=== PATIENT | male | born 1950 | race African-American/Black ===

== ENCOUNTER 2016-10-05 16:53 | Inpatient (IN) | payer MEDICAID ==
--- NOTE | 2016-10-05 17:22 | DR.GENAD ---
HPI - PCP Primary Care Physician: EDILMA - Complaint/Symptoms Chief Complaint:: DAUGHTER STATES PT. WAS ADMITTED TO [facility] LAST MONDAY AND MONDAY FOR TIA. PT. WAS D/C MONDAY AND RETURNED TO THEIR HOSPITAL ON MONDAY FOR SAME SYMPTOMS & WAS THEN TRANSFERRED TO [facility] WHERE HE STAYED UNTIL MONDAY. PT. HAS BEEN APHASIC SINCE MONDAY AND HAS INCREASED RIGHT SIDED WEAKNESS. DAUGHTER STATES PT. HAS NOT EATING SINCE MONDAY BUT IS ABLE TO TAKE HIS MEDICATIONS. PT. HAS RIGHT SIDED FACIAL DROOPING. - Nurses notes reviewed Nurses Notes Review: Yes - Source History Provided: Family Member - Mode of Arrival Mode of Arrival: Wheelchair - Timing Onset of Chief Complaint: 10/02/16 PMH - PMH Past Medical History: Yes Past Medical History: Hypertension, Liver Disease Past Medical History Comment: TIA Past Surgical History: Yes Surgical History: Ortho Surgery - Family History History of Family Medical Conditions: Yes Family Medical History: Diabetes Mellitus, Cancer, Coronary Artery Disease, Hypertension - Social History Does patient currently use any type of tobacco product: No Have you used tobacco products in the last 12 months: No Type of Tobacco Use: None Does any household member use tobacco: No Alcohol Use: None Do you use any recreational Drugs:: No Lives With: Spouse Lives Where: Home - infectious screening In the last 2 months have you had wt loss of >10#?: NO Have you had fever, night sweats or hemotysis?: No Have you traveled outside the country in the last 6 months?: No Isolation: Standard PE - Vital Signs Vitals: Temperature 98.3 F Pulse Rate [Right Brachial] 65 Pulse Rate 74 Respiratory Rate 16 Blood Pressure [Right Arm] 128/76 Blood Pressure [Left Arm] 146/87 Blood Pressure [Standing] 189/113 Blood Pressure [Sitting] 174/110 Blood Pressure [Lying] 187/116 Blood Pressure 116/79 O2 Sat by Pulse Oximetry 98 ROR - Labs Reviewed Result Diagrams: 10/05/16 17:40 10/05/16 17:40 Laboratory: WBC 8.7 X10^3/uL (3.6-10.0) 10/05/16 17:40 RBC 5.27 X10^6/uL (4.7-6.0) 10/05/16 17:40 Hgb 15.4 g/dL (13.5-18.0) 10/05/16 17:40 Hct 45.4 % (42.0-54.0) 10/05/16 17:40 MCV 86.2 fL (80.0-100.0) 10/05/16 17:40 MCH 29.2 pg (27.0-34.0) 10/05/16 17:40 MCHC 33.9 g/dL (33.0-35.0) 10/05/16 17:40 RDW 14.1 % (11.6-16.5) 10/05/16 17:40 Plt Count 215 X10^3/uL (150.0-450.0) 10/05/16 17:40 MPV 9.3 fL (7.4-11.0) 10/05/16 17:40 Neut % 54.7 % (42.0-75.0) 10/05/16 17:40 Lymph % 32.5 % (21.0-51.0) 10/05/16 17:40 [place] % 10.0 % (0.0-13.0) 10/05/16 17:40 Eos % 2.0 % (0.9-2.9) 10/05/16 17:40 Baso % 0.8 % (0.2-1.0) 10/05/16 17:40 Neut # 4.7 x10^3/uL (2.2-4.8) 10/05/16 17:40 Lymph # 2.8 X10^3/uL (1.3-2.9) 10/05/16 17:40 [place] # 0.9 x10^3/uL (0.3-0.8) H 10/05/16 17:40 Eos # 0.2 x10^3/uL (0.0-0.2) 10/05/16 17:40 Baso # 0.1 X10^3/uL (0.0-0.1) 10/05/16 17:40 Absolute Nucleated RBC 0.0 /100WBC 10/05/16 17:40 Sodium 140 mmol/L (136-145) 10/05/16 17:40 Corrected Sodium TNP 10/05/16 17:40 Potassium 3.8 mmol/L (3.5-5.1) 10/05/16 17:40 Chloride 102 mmol/L (98-107) 10/05/16 17:40 Carbon Dioxide 23.9 mmol/L (21-32) 10/05/16 17:40 BUN 23 mg/dL (7-18) H 10/05/16 17:40 Creatinine 1.41 mg/dL (0.70-1.30) H 10/05/16 17:40 Est GFR (MDRD) Af Amer > 60 (>60) 10/05/16 17:40 Est GFR (MDRD) Non-Af 54 (>60) L 10/05/16 17:40 Glucose 104 mg/dL (65-99) H 10/05/16 17:40 Calcium 9.6 mg/dL (8.5-10.1) 10/05/16 17:40 Corrected Calcium TNP 10/05/16 17:40 Total Bilirubin 1.80 mg/dL (0.2-1.0) H 10/05/16 17:40 AST 53 Units/L (15-37) H 10/05/16 17:40 ALT 43 Units/L (12-78) 10/05/16 17:40 Alkaline Phosphatase 105 Units/L (46-116) 10/05/16 17:40 Creatine Kinase 1685 Units/L (39-308) H 10/05/16 17:40 CK-MB (CK-2) 18.4 ng/mL (0-4.0) H* 10/05/16 17:40 CK/CKMB % Calc 1.1 % (<4) 10/05/16 17:40 Troponin I < 0.02 ng/mL (0-1.5) 10/05/16 17:40 B-Natriuretic Peptide < 5.0 pg/mL (0-79) 10/05/16 17:40 Total Protein 8.6 g/dL (6.4-8.2) H 10/05/16 17:40 Albumin 4.2 g/dL (3.4-5.0) 10/05/16 17:40 Globulin 4.4 g/dL (2.5-4.5) 10/05/16 17:40 Albumin/Globulin Ratio 1.0 Ratio (1.1-2.1) L 10/05/16 17:40 - Discharge Plan Condition: Stable - Follow ups/Referrals Follow ups/Referrals: Lyndon FRANCE [Primary Care Provider] - 3 days - Instructions
[2016-10-05 17:56] LABS: BASOPHILS # (AUTO) 0.1 X10^3/uL (0.0-0.1); BASOPHILS % (AUTO) 0.8 % (0.2-1.0); EOSINOPHILS # (AUTO) 0.2 x10^3/uL (0.0-0.2); HEMATOCRIT 45.4 % (42.0-54.0); HEMOGLOBIN 15.4 g/dL (13.5-18.0); LYMPHOCYTES # (AUTO) 2.8 X10^3/uL (1.3-2.9); LYMPHOCYTES % (AUTO) 32.5 % (21.0-51.0); MEAN CORPUSCULAR HEMOGLOBIN 29.2 pg (27.0-34.0); MEAN CORPUSCULAR HGB CONC 33.9 g/dL (33.0-35.0); MEAN CORPUSCULAR VOLUME 86.2 fL (80.0-100.0); MEAN PLATELET VOLUME 9.3 fL (7.4-11.0); MONOCYTES # (AUTO) 0.9 x10^3/uL (0.3-0.8); NEUTROPHILS # (AUTO) 4.7 x10^3/uL (2.2-4.8); NEUTROPHILS % (AUTO) 54.7 % (42.0-75.0); PLATELET COUNT 215 X10^3/uL (150.0-450.0); RED BLOOD COUNT 5.27 X10^6/uL (4.7-6.0); RED CELL DISTRIBUTION WIDTH 14.1 % (11.6-16.5); WHITE BLOOD COUNT 8.7 X10^3/uL (3.6-10.0)
[2016-10-05 18:06] LABS: BLOOD UREA NITROGEN 23 mg/dL (7-18); CALCIUM 9.6 mg/dL (8.5-10.1); CARBON DIOXIDE 23.9 mmol/L (21-32); CHLORIDE 102 mmol/L (98-107); CREATININE 1.41 mg/dL (0.70-1.30); GLUCOSE 104 mg/dL (65-99); SODIUM 140 mmol/L (136-145); TROPONIN I < 0.02 ng/mL (0-1.5); eGFR BLACK RACES > 60 (>60); eGFR NON BLACK RACES 54 (>60)
[2016-10-05 18:22] LABS: B-TYPE NATRIURETIC PEPTIDE < 5.0 pg/mL (0-79)
[2016-10-05 18:29] LABS: ALANINE AMINOTRANSFERASE 43 Units/L (12-78); ALBUMIN 4.2 g/dL (3.4-5.0); ALKALINE PHOSPHATASE 105 Units/L (46-116); ASPARTATE AMINO TRANSFERASE 53 Units/L (15-37); TOTAL PROTEIN 8.6 g/dL (6.4-8.2)
[2016-10-05 18:31] LABS: CREATINE KINASE MB 18.4 ng/mL (0-4.0)
[2016-10-05 18:32] LABS: CKMB % 1.1 % (<4)
[2016-10-05 18:33] LABS: CREATINE KINASE 1685 Units/L (39-308)
[2016-10-05] MEDS ORDERED: NS 100 ML IV 100 ML IV ONE (18:48)
--- NOTE | 2016-10-05 19:49 | RAD ---
HISTORY: Chest pain Study: Single view chest. Comparison: December 21, 2015. Findings: The trachea is midline. The cardiac silhouette is mildly enlarged with LVH. The lungs are clear wi thout focal infiltrate or effusion. The bony thorax is unremarkable. IMPRESSION: 1. No acute cardiopulmonary disease or changes. Reported By:
--- NOTE | 2016-10-05 20:05 | CT ---
HISTORY: Altered mental status and CVA symptoms. Exams: 1. Noncontrast head CT examination. 2. Post-contrast CT angiogram of the brain. Comparison: None. Technique: Multiple axial images of the brain were obtained from the skull base to the vertex without administr ation of IV contrast. Next, CT angiographic images of the brain were performed following the use of IV contrast with the constructed 3D images of the intracranial vessels. Findings: There is focally altered CT density seen in the left periventricular white matter of the high convex ity which is most concerning for an evolving, acute to subacute, left periventricular white matter i schemic event/CVA which can be confirmed with MR imaging. CT angiographic imaging of the brain demon strates no evidence for high-grade stenosis or occlusion of the intracranial vessels. No large aneur ysm or vascular malformation is appreciated in this patient, either. No acute intracranial hemorrhag e or other acute intracranial process is evident. There is mild cerebral sulcal and cisternal prominence as well as atherosclerotic change in the prox imal intracranial carotid and vertebral arteries, which is not out of proportion to the patient's st ated age. There is mild CT density alteration seen in the periventricular white matter of the high a nd mid-convexity, which is likely in the setting of small vessel disease and not out of proportion t o the patient's stated age. There is no significant ventricular dilatation without evidence for hydr ocephalus or herniation syndrome. No midline shift is evident. No acute intraparenchymal hemorrhage or mass can be identified. No extra-axial fluid collections are seen. No additional alteration in the attenuation of the brain parenchyma can be identified to suggest acute or subacute ischemic sigala ge. The extracranial structures are unremarkable. IMPRESSION: Imaging findings most concerning for an evolving, acute to subacute, left periventricula r/frontal high convexity white matter ischemic event/CVA which can be confirmed with MR imaging. No other acute intracranial process seen. No evidence for acute intracranial bleed, vascular lesion, an eurysm, or occlusion of the [place] vessels. Reported By:
[2016-10-05] MEDS: NS 1000 ML 1,000 ML IV SCH (23:21)
[2016-10-05 23:58] LABS: TROPONIN I < 0.02 ng/mL (0-1.5)
[2016-10-05 23:59] LABS: CKMB % 0.9 % (<4); CREATINE KINASE 1737 Units/L (39-308)
[2016-10-06 00:01] LABS: CREATINE KINASE MB 15.6 ng/mL (0-4.0)
[2016-10-06 00:08] LABS: BILIRUBIN,URINE NEGATIVE (NEGATIVE); BLOOD/HEMOGLOBIN,URINE NEGATIVE (NEGATIVE); GLUCOSE, URINE NEGATIVE (NEGATIVE); KETONES,URINE NEGATIVE (NEGATIVE); LEUKOCYTE ESTERASE ,URINE NEGATIVE (NEGATIVE); NITRITES,URINE NEGATIVE (NEGATIVE); PROTEIN,URINE 2+ (NEGATIVE); UROBILINOGEN,URINE NORMAL (NORMAL)
[2016-10-06 00:11] LABS: APPEARANCE,URINE CLEAR (CLEAR); BACTERIA,URINE TRACE /HPF (NEGATIVE); COLOR,URINE DARK YELLOW (YELLOW); RBC,URINE NONE SEEN /HPF (NEGATIVE); SQUAMOUS EPITHELIAL CELL,UR RARE /HPF (NEGATIVE)
[2016-10-06 00:38] VITALS: BMI 27.6
[2016-10-06 06:13] LABS: BASOPHILS # (AUTO) 0.1 X10^3/uL (0.0-0.1); EOSINOPHILS # (AUTO) 0.4 x10^3/uL (0.0-0.2); EOSINOPHILS % (AUTO) 5.1 % (0.9-2.9); HEMATOCRIT 43.4 % (42.0-54.0); HEMOGLOBIN 14.5 g/dL (13.5-18.0); LYMPHOCYTES % (AUTO) 42.6 % (21.0-51.0); MEAN CORPUSCULAR HGB CONC 33.4 g/dL (33.0-35.0); MEAN CORPUSCULAR VOLUME 86.6 fL (80.0-100.0); MEAN PLATELET VOLUME 9.5 fL (7.4-11.0); MONOCYTES # (AUTO) 0.6 x10^3/uL (0.3-0.8); MONOCYTES % (AUTO) 8.7 % (0.0-13.0); NEUTROPHILS % (AUTO) 42.6 % (42.0-75.0); PLATELET COUNT 189 X10^3/uL (150.0-450.0); RED BLOOD COUNT 5.01 X10^6/uL (4.7-6.0); RED CELL DISTRIBUTION WIDTH 13.9 % (11.6-16.5); WHITE BLOOD COUNT 6.9 X10^3/uL (3.6-10.0)
[2016-10-06 06:16] LABS: ALANINE AMINOTRANSFERASE 43 Units/L (12-78); ALBUMIN 3.8 g/dL (3.4-5.0); ALKALINE PHOSPHATASE 97 Units/L (46-116); ASPARTATE AMINO TRANSFERASE 47 Units/L (15-37); BLOOD UREA NITROGEN 21 mg/dL (7-18); CARBON DIOXIDE 22.8 mmol/L (21-32); CHLORIDE 104 mmol/L (98-107); CHOL/HDL RATIO 5.2 (0.0-5.0); CHOLESTEROL 146 mg/dL (0-200); CREATININE 1.16 mg/dL (0.70-1.30); GLUCOSE 100 mg/dL (65-99); HDL CHOLESTEROL 28 mg/dL (40-60); SODIUM 140 mmol/L (136-145); TOTAL PROTEIN 7.8 g/dL (6.4-8.2); TRIGLYCERIDES 120 mg/dL (0-150); eGFR BLACK RACES > 60 (>60); eGFR NON BLACK RACES > 60 (>60)
[2016-10-06 07:03] LABS: TROPONIN I < 0.02 ng/mL (0-1.5)
[2016-10-06 07:12] LABS: CKMB % 0.9 % (<4); CREATINE KINASE 1314 Units/L (39-308); CREATINE KINASE MB 12.3 ng/mL (0-4.0)
[2016-10-06] MEDS: ASPIRIN PO SCH (08:33)
[2016-10-06] MEDS: NORVASC TAB 2.5 MG PO SCH (08:33)
[2016-10-06] MEDS: PLAVIX PO SCH (08:33)
[2016-10-06] MEDS: NS 1000 ML 1,000 ML IV SCH ×3 (08:34→22:33)
[2016-10-06] MEDS: ZESTRIL TAB 5 MG PO SCH (08:34)
--- NOTE | 2016-10-06 12:37 | MRI ---
MRI abdomen without contrast Indication: Abdominal pain with dysphagia Technique: Multiplanar, multi sequence imaging of the abdomen without IV contrast administration. Findings: The liver the, gallbladder, bile ducts, spleen, pancreas, adrenal glands and kidneys are unremarkabl e aside for bilateral simple renal cysts. Upper GI tract is unremarkable. No free fluid or adenopath y. In out of phase imaging demonstrates no abnormality. Evaluation of the bile ducts on MRCP is nond iagnostic given patient motion throughout the exam. Impression: 1.Bilateral renal cysts. 2. No other abnormality identified within the abdomen. Please note MRCP imaging was nondiagnostic as patient was unable to follow breathing instructions to allow for adequate imaging. Reported By:
--- NOTE | 2016-10-06 13:55 | MRI ---
STUDY: MRA OF THE BRAIN HISTORY: TIA. Headaches, dizziness, right-sided weakness. Comparison: None. Technique: 3D [id number] imaging of the intracranial circulation was performed. Findings: 3D [id number] MRA examination shows normal flow related enhancement in the major intracranial ar teries. There is no evidence of hemodynamically significant stenosis or aneurysm. There is some athe rosclerotic irregularity in the distal basilar artery. There are bilateral posterior communicating a rteries which provides the dominant supply to both posterior cerebral arteries. Very small P1 LANGUAGE INTERPRETER se gments are noted bilaterally. The right vertebral artery is dominant. IMPRESSION: 1. Atherosclerotic irregularity in the basilar artery. Otherwise, unremarkable MRA of the brain, wi anatomic variation as described. Reported By:
--- NOTE | 2016-10-06 16:12 | DR.CONSULT ---
Consult - Consultation for Day of: Date: 10/05/16 - Chief Complaint Chief Complaint: Loss of speech, inability to move right arm. - Allergies Allergies/Adverse Reactions: Allergies Allergy/AdvReac Type Severity Reaction Status Date / Time No Known Drug Allergy Allergy Verified 10/05/16 17:01 - History of Present Illness History of Present Illness: Patient is well known to lower services. He was seen and examined in our neurology clinic recently because of acute onset of stroke resulting in marked slurring of speech progressing to mutism and weakness of the right hand in the right leg. These symptoms occurred almost 7- 8 days ago. Patient was taken to the [place] ER. He was hospitalized that before transferring to [facility] in [place]. He stated there for couple of days. There was improvement in his condition. His speech was dysarthric. Patient had a detailed workup in [facility]. We have asked for medical records from there. But we have not yet received. After release from [facility] couple of days later patient became aphonic. He did have strength in the right arm and right leg. He was able to ambulate when I saw him in my office on 04 Oct 2016 Patient was brought today to the ER because of progression of his stroke. He is unable to move his right arm. He is able to move his right leg. He continues to be mute. His comprehension is intact. He seems to be awake alert and oriented. Patient has intact insight - Past Medical History Past Medical History: Hypertension, Liver Disease - Past Surgical History Surgical History: Ortho Surgery - Family History Family Medical History: Diabetes Mellitus, Cancer, Hypertension - Social History Does patient currently use any type of tobacco product: No Have you used tobacco products in the last 12 months: No Type of Tobacco Use: None Does any household member use tobacco: No Alcohol Use: None Drug Use: None - Medications Home Medications: Amlodipine Besylate [Norvasc] 1 tab PO DAILY 10/05/16 [History Confirmed ] Clopidogrel Bisulfate [PLAVIX TAB 75 MG *] 1 tab PO DAILY 10/05/16 [History Confirmed 10/05/16] Lisinopril [ZESTRIL *] 1 tab PO DAILY 10/05/16 [History Confirmed 10/05/16] - Review of Systems Constitutional: See HPI Eyes: No Symptoms Reported ENT: No Symptoms Reported Respiratory: No Symptoms Reported Cardiovascular: No Symptoms Reported Gastrointestinal: No Symptoms Reported Genitourinary: No Symptoms Reported Musculoskeletal: No Symptoms Reported Skin: No Symptoms Reported Neurological: See HPI - Physical Exam Vital Signs: Temperature 98 F Pulse Rate [Apical] 83 Pulse Rate [Right Brachial] 63 Respiratory Rate 18 Blood Pressure [Right Arm] 151/78 Blood Pressure [Left Arm] 128/77 O2 Sat by Pulse Oximetry 97 Oriented: Normal, Time, Person, Place Eyes: Normal Ear: Normal Nose: Normal Throat: Normal Respiratory: Clear Throughout Cardiovascular: Normal : Normal Auscultation: Bowel Sounds: Normal Palpation: Normal Tenderness: Normal Skin: Normal Musculoskeletal: Normal Psychiatric: Normal, Other (Neurological examination/cognitive status; patient is awake alert oriented in time place and person. Speech; patient is aphemic. Cranial nerve examination; visual braun areconfrontation. Third fourth and sixth cranial nerve; extraocular movements are full without any nystagmus. Pupils are 3.5 mm in size around equal and reactive to light. Fifth cranial nerve; facial sensations are intact bilaterally. Seventh cranial nerve; patient has markedly weakness of lower facial muscles. 8 cranial nerve; hearing is intact bilaterally. Ninth and 10th; gag is positive. 11th cranial nerve; shoulder shrug is weaker on the right side. 12th cranial nerve; tongue is deviated towards the right. Coordination; patient is unable to move the right arm. Coordination could not be tested because of markedly weakness on the right side. Gait; was not tested. Motor system examination; tone is normal. Patient is unable to lift his right arm against the gravity. He is able to lift his right leg slightly against the gravity. On the left side the strength is 5 over 5. DTRs are +1 equal and symmetrical. Plantars are mute. Sensory system examination; patient has no deficits.) Mood Description: Calm Affect: Normal Speech Pattern: Aphasic - Plan Plan: Patient was seen and examined because of the progression of his symptoms. He had a stroke approximately 8-9 days ago then he developed right-sided weakness associated with dysarthria. Patient had a loss of consciousness in the ER in [place]. He was treated in [place] for a day or 2. After that he was transferred to [facility]. He was evaluated and treated there for couple of days. After the discharge from the hospital patient was still able to speak a little bit. But 2 days ago he completely lost his ability to speak. And when I saw in the ER patient is unable to lift his right hand against the gravity. Patient is awake alert and responding very well to verbal communication. His comprehension is intact. Patient has preserved insight.I'm recommending detailed stroke workup. This will include MRI of the brain, MRA of the brain, CT angiogram of the brain. We will follow-up.
--- NOTE | 2016-10-06 17:51 | MRI ---
MRI OF THE BRAIN WITHOUT IV CONTRAST CLINICAL INDICATION: TIA and right-sided weakness TECHNIQUE: Pre-contrast T1-w, T2, and diffusion-w sequences of the brain with ADC maps. COMPARISON: MRI brain 09/27/2016 FINDINGS: Continued expansion noted restricted diffusion involving the high left frontoparietal lobe (series 5 02, image 28). This has increased in size since prior. There is no mass or mass-effect, or abnormal extra-axial fluid collection. Diffuse patchy and confluent periventricular and subcortical T2/FLAIR signal with associated volume loss.. The ventricles are normal in size, shape and position. There ar e normal signal voids in the larger intracranial vessels. The paranasal sinuses and mastoid air cell s are predominantly clear. The marrow signal pattern is within normal limits. IMPRESSION: 1. Expanding acute infarct involving the high left frontal parietal lobes. Reported By:
--- NOTE | 2016-10-06 18:32 | PCM.PROG ---
Progress Note - Progress Note for Day of Date: 10/06/16 - Subjective Subjective: Aphasia, right-sided hemiparalysis.Patient continues to remain unchanged. He is awake alert responding reasonably well to verbal communication although he is unable to speak. He continues to have no strength in the right arm. - Past Medical Family Social History Past Med/Fam/Surg Hx: No changes since H&P Allergies: Allergies No Known Drug Allergy Allergy (Verified 10/05/16 17:01) - Review of Systems ROS: No change since H&P - Vital Signs and I&O's Vital Signs: Temperature 98.4 F Pulse Rate [Apical] 67 Pulse Rate [Right Brachial] 63 Respiratory Rate 18 Blood Pressure [Right Arm] 146/82 Blood Pressure [Left Arm] 128/77 O2 Sat by Pulse Oximetry 98 Intake and Output: Intake & Output 10/04/16 10/05/16 10/06/16 10/07/16 11:59 11:59 11:59 11:59 Intake Total 958 1000 Output Total 350 800 Balance 608 200 - Physical Exam Oriented: Normal, Time, Person, Place Eyes: Normal Ear: Normal Nose: Normal Throat: Normal Cardiovascular: Normal : Normal Auscultation: Bowel Sounds: Normal Tenderness: Normal Skin: Normal Musculoskeletal: Normal Psychiatric: Normal, Other (Neurological examination/cognitive status; patient is awake alert oriented in time place and person. Speech; patient is aphemic. Cranial nerve examination; visual braun areconfrontation. Third fourth and sixth cranial nerve; extraocular movements are full without any nystagmus. Pupils are 3.5 mm in size around equal and reactive to light. Fifth cranial nerve; facial sensations are intact bilaterally. Seventh cranial nerve; patient has markedly weakness of lower facial muscles. 8 cranial nerve; hearing is intact bilaterally. Ninth and 10th; gag is positive. 11th cranial nerve; shoulder shrug is weaker on the right side. 12th cranial nerve; tongue is deviated towards the right. Coordination; patient is unable to move the right arm. Coordination could not be tested because of markedly weakness on the right side. Gait; was not tested. Motor system examination; tone is normal. Patient is unable to lift his right arm against the gravity. He is able to lift his right leg slightly against the gravity. On the left side the strength is 5 over 5. DTRs are +1 equal and symmetrical. Plantars are mute. Sensory system examination; patient has no deficits.) Mood Description: Calm Affect: Normal Speech Pattern: Aphasic - Laboratory and Diagnostics Result Diagrams: 10/06/16 05:35 10/06/16 05:35 Labs: Laboratory WBC 6.9 X10^3/uL (3.6-10.0) 10/06/16 05:35 RBC 5.01 X10^6/uL (4.7-6.0) 10/06/16 05:35 Hgb 14.5 g/dL (13.5-18.0) 10/06/16 05:35 Hct 43.4 % (42.0-54.0) 10/06/16 05:35 MCV 86.6 fL (80.0-100.0) 10/06/16 05:35 MCH 29.0 pg (27.0-34.0) 10/06/16 05:35 MCHC 33.4 g/dL (33.0-35.0) 10/06/16 05:35 RDW 13.9 % (11.6-16.5) 10/06/16 05:35 Plt Count 189 X10^3/uL (150.0-450.0) 10/06/16 05:35 MPV 9.5 fL (7.4-11.0) 10/06/16 05:35 Neut % 42.6 % (42.0-75.0) 10/06/16 05:35 Lymph % 42.6 % (21.0-51.0) 10/06/16 05:35 [place] % 8.7 % (0.0-13.0) 10/06/16 05:35 Eos % 5.1 % (0.9-2.9) H 10/06/16 05:35 Baso % 1.0 % (0.2-1.0) 10/06/16 05:35 Neut # 3.0 x10^3/uL (2.2-4.8) 10/06/16 05:35 Lymph # 3.0 X10^3/uL (1.3-2.9) H 10/06/16 05:35 [place] # 0.6 x10^3/uL (0.3-0.8) 10/06/16 05:35 Eos # 0.4 x10^3/uL (0.0-0.2) H 10/06/16 05:35 Baso # 0.1 X10^3/uL (0.0-0.1) 10/06/16 05:35 Absolute Nucleated RBC 0.1 /100WBC 10/06/16 05:35 INR Target Range - 10/06/16 05:35 INR 1.22 (0.8-1.3) 10/06/16 05:35 PTT 29.9 SECONDS (22.9-36.5) 10/06/16 05:35 PTT Comment - 10/06/16 05:35 Sodium 140 mmol/L (136-145) 10/06/16 05:35 Corrected Sodium TNP 10/06/16 05:35 Potassium 3.7 mmol/L (3.5-5.1) 10/06/16 05:35 Chloride 104 mmol/L (98-107) 10/06/16 05:35 Carbon Dioxide 22.8 mmol/L (21-32) 10/06/16 05:35 BUN 21 mg/dL (7-18) H 10/06/16 05:35 Creatinine 1.16 mg/dL (0.70-1.30) 10/06/16 05:35 Est GFR (MDRD) Af Amer > 60 (>60) 10/06/16 05:35 Est GFR (MDRD) Non-Af > 60 (>60) 10/06/16 05:35 Glucose 100 mg/dL (65-99) H 10/06/16 05:35 Calcium 9.0 mg/dL (8.5-10.1) 10/06/16 05:35 Corrected Calcium TNP 10/06/16 05:35 Total Bilirubin 1.90 mg/dL (0.2-1.0) H 10/06/16 05:35 AST 47 Units/L (15-37) H 10/06/16 05:35 ALT 43 Units/L (12-78) 10/06/16 05:35 Alkaline Phosphatase 97 Units/L (46-116) 10/06/16 05:35 Creatine Kinase 1314 Units/L (39-308) H 10/06/16 05:35 CK-MB (CK-2) 12.3 ng/mL (0-4.0) H* 10/06/16 05:35 CK/CKMB % Calc 0.9 % (<4) 10/06/16 05:35 Troponin I < 0.02 ng/mL (0-1.5) 10/06/16 05:35 B-Natriuretic Peptide < 5.0 pg/mL (0-79) 10/05/16 17:40 Total Protein 7.8 g/dL (6.4-8.2) 10/06/16 05:35 Albumin 3.8 g/dL (3.4-5.0) 10/06/16 05:35 Globulin 4.0 g/dL (2.5-4.5) 10/06/16 05:35 Albumin/Globulin Ratio 1.0 Ratio (1.1-2.1) L 10/06/16 05:35 Triglycerides 120 mg/dL (0-150) 10/06/16 05:35 Cholesterol 146 mg/dL (0-200) 10/06/16 05:35 LDL Cholesterol, Calc 94 mg/dL (0-100) 10/06/16 05:35 HDL Cholesterol 28 mg/dL (40-60) L 10/06/16 05:35 Cholesterol/HDL Ratio 5.2 (0.0-5.0) H 10/06/16 05:35 Specimen Type Clean catch urine 10/05/16 23:50 Urine Color Dark yellow (YELLOW) 10/05/16 23:50 Urine Appearance Clear (CLEAR) 10/05/16 23:50 Urine pH 5.0 (5.0 - 8.0) 10/05/16 23:50 Ur Specific [place] 1.015 (1.000-1.030) 10/05/16 23:50 Urine Protein 2+ (NEGATIVE) 10/05/16 23:50 Urine Glucose (UA) Negative (NEGATIVE) 10/05/16 23:50 Urine Ketones Negative (NEGATIVE) 10/05/16 23:50 Urine Occult Blood Negative (NEGATIVE) 10/05/16 23:50 Urine Nitrite Negative (NEGATIVE) 10/05/16 23:50 Urine Bilirubin Negative (NEGATIVE) 10/05/16 23:50 Urine Urobilinogen Normal (NORMAL) 10/05/16 23:50 Ur Leukocyte Esterase Negative (NEGATIVE) 10/05/16 23:50 Urine RBC None seen /HPF (NEGATIVE) 10/05/16 23:50 Urine WBC 0-1 /HPF (NEGATIVE) 10/05/16 23:50 Ur Squamous Epith Cells Rare /HPF (NEGATIVE) 10/05/16 23:50 Urine Bacteria Trace /HPF (NEGATIVE) 10/05/16 23:50 Ur Culture Indicated? No/not indicated 10/05/16 23:50 Additional Notes Additional Notes: Patient's condition remains unchanged. There is no improvement in his condition. He had MRI of the brain which showed multiple strokes in the distributional posterior cerebral artery and middle cerebral artery on the left side. It is possible that patient is showering emboli. His detailed stroke workup is in progress. At this point I am recommending continuation of his present management. We will follow up.
[2016-10-06] MEDS: COLACE CAP 100 MG PO SCH (22:33)
[2016-10-06] MEDS: MILK OF MAGNESIA PO SCH (22:33)
[2016-10-07] MEDS ORDERED: NORVASC TAB 2.5 MG ONE (08:49)
[2016-10-07] MEDS: ZESTRIL TAB 5 MG PO SCH (09:00)
[2016-10-07] MEDS: ASPIRIN PO SCH (09:00)
[2016-10-07] MEDS: NORVASC TAB 2.5 MG PO SCH (09:00)
[2016-10-07] MEDS: PLAVIX PO SCH (09:03)
[2016-10-07] MEDS: NS 1000 ML 1,000 ML IV SCH (15:00)
--- NOTE | 2016-10-07 20:08 | PCM.PROG ---
Progress Note - Progress Note for Day of Date: 10/07/16 - Subjective Subjective: Patient was able to stand today and take a few steps with the help of walker. He is feeling better. He made some efforts to say something but it was unintelligible. He was seen by physical therapy and speech therapy. - Past Medical Family Social History Past Med/Fam/Surg Hx: No changes since H&P Allergies: Allergies No Known Drug Allergy Allergy (Verified 10/05/16 17:01) - Review of Systems ROS: No change since H&P - Vital Signs and I&O's Vital Signs: Temperature 98 F Pulse Rate [Apical] 68 Pulse Rate [Right Brachial] 63 Respiratory Rate 19 Blood Pressure [Right Arm] 133/96 Blood Pressure [Left Arm] 128/77 O2 Sat by Pulse Oximetry 97 Intake and Output: Intake & Output 10/05/16 10/06/16 10/07/16 10/08/16 11:59 11:59 11:59 11:59 Intake Total 958 1340 0 Output Total 350 1075 250 Balance 608 265 -250 - Physical Exam Oriented: Normal, Time, Person, Place Eyes: Normal Ear: Normal Nose: Normal Throat: Normal Cardiovascular: Normal : Normal Auscultation: Bowel Sounds: Normal Tenderness: Normal Skin: Normal Musculoskeletal: Normal Psychiatric: Normal, Other (Neurological examination/cognitive status; patient is awake alert oriented in time place and person. Speech; patient is aphemic. Cranial nerve examination; visual braun areconfrontation. Third fourth and sixth cranial nerve; extraocular movements are full without any nystagmus. Pupils are 3.5 mm in size around equal and reactive to light. Fifth cranial nerve; facial sensations are intact bilaterally. Seventh cranial nerve; patient has markedly weakness of lower facial muscles. 8 cranial nerve; hearing is intact bilaterally. Ninth and 10th; gag is positive. 11th cranial nerve; shoulder shrug is weaker on the right side. 12th cranial nerve; tongue is deviated towards the right. Coordination; patient is unable to move the right arm. Coordination could not be tested because of markedly weakness on the right side. Gait; was not tested. Motor system examination; tone is normal. Patient is unable to lift his right arm against the gravity. He is able to lift his right leg slightly against the gravity. On the left side the strength is 5 over 5. DTRs are +1 equal and symmetrical. Plantars are mute. Sensory system examination; patient has no deficits.) Mood Description: Calm Affect: Normal Speech Pattern: Aphasic - Laboratory and Diagnostics Result Diagrams: 10/06/16 05:35 10/06/16 05:35 Labs: Laboratory WBC 6.9 X10^3/uL (3.6-10.0) 10/06/16 05:35 RBC 5.01 X10^6/uL (4.7-6.0) 10/06/16 05:35 Hgb 14.5 g/dL (13.5-18.0) 10/06/16 05:35 Hct 43.4 % (42.0-54.0) 10/06/16 05:35 MCV 86.6 fL (80.0-100.0) 10/06/16 05:35 MCH 29.0 pg (27.0-34.0) 10/06/16 05:35 MCHC 33.4 g/dL (33.0-35.0) 10/06/16 05:35 RDW 13.9 % (11.6-16.5) 10/06/16 05:35 Plt Count 189 X10^3/uL (150.0-450.0) 10/06/16 05:35 MPV 9.5 fL (7.4-11.0) 10/06/16 05:35 Neut % 42.6 % (42.0-75.0) 10/06/16 05:35 Lymph % 42.6 % (21.0-51.0) 10/06/16 05:35 [place] % 8.7 % (0.0-13.0) 10/06/16 05:35 Eos % 5.1 % (0.9-2.9) H 10/06/16 05:35 Baso % 1.0 % (0.2-1.0) 10/06/16 05:35 Neut # 3.0 x10^3/uL (2.2-4.8) 10/06/16 05:35 Lymph # 3.0 X10^3/uL (1.3-2.9) H 10/06/16 05:35 [place] # 0.6 x10^3/uL (0.3-0.8) 10/06/16 05:35 Eos # 0.4 x10^3/uL (0.0-0.2) H 10/06/16 05:35 Baso # 0.1 X10^3/uL (0.0-0.1) 10/06/16 05:35 Absolute Nucleated RBC 0.1 /100WBC 10/06/16 05:35 INR Target Range - 10/06/16 05:35 INR 1.22 (0.8-1.3) 10/06/16 05:35 PTT 29.9 SECONDS (22.9-36.5) 10/06/16 05:35 PTT Comment - 10/06/16 05:35 Sodium 140 mmol/L (136-145) 10/06/16 05:35 Corrected Sodium TNP 10/06/16 05:35 Potassium 3.7 mmol/L (3.5-5.1) 10/06/16 05:35 Chloride 104 mmol/L (98-107) 10/06/16 05:35 Carbon Dioxide 22.8 mmol/L (21-32) 10/06/16 05:35 BUN 21 mg/dL (7-18) H 10/06/16 05:35 Creatinine 1.16 mg/dL (0.70-1.30) 10/06/16 05:35 Est GFR (MDRD) Af Amer > 60 (>60) 10/06/16 05:35 Est GFR (MDRD) Non-Af > 60 (>60) 10/06/16 05:35 Glucose 100 mg/dL (65-99) H 10/06/16 05:35 Calcium 9.0 mg/dL (8.5-10.1) 10/06/16 05:35 Corrected Calcium TNP 10/06/16 05:35 Total Bilirubin 1.90 mg/dL (0.2-1.0) H 10/06/16 05:35 AST 47 Units/L (15-37) H 10/06/16 05:35 ALT 43 Units/L (12-78) 10/06/16 05:35 Alkaline Phosphatase 97 Units/L (46-116) 10/06/16 05:35 Creatine Kinase 1314 Units/L (39-308) H 10/06/16 05:35 CK-MB (CK-2) 12.3 ng/mL (0-4.0) H* 10/06/16 05:35 CK/CKMB % Calc 0.9 % (<4) 10/06/16 05:35 Troponin I < 0.02 ng/mL (0-1.5) 10/06/16 05:35 B-Natriuretic Peptide < 5.0 pg/mL (0-79) 10/05/16 17:40 Total Protein 7.8 g/dL (6.4-8.2) 10/06/16 05:35 Albumin 3.8 g/dL (3.4-5.0) 10/06/16 05:35 Globulin 4.0 g/dL (2.5-4.5) 10/06/16 05:35 Albumin/Globulin Ratio 1.0 Ratio (1.1-2.1) L 10/06/16 05:35 Triglycerides 120 mg/dL (0-150) 10/06/16 05:35 Cholesterol 146 mg/dL (0-200) 10/06/16 05:35 LDL Cholesterol, Calc 94 mg/dL (0-100) 10/06/16 05:35 HDL Cholesterol 28 mg/dL (40-60) L 10/06/16 05:35 Cholesterol/HDL Ratio 5.2 (0.0-5.0) H 10/06/16 05:35 Specimen Type Clean catch urine 10/05/16 23:50 Urine Color Dark yellow (YELLOW) 10/05/16 23:50 Urine Appearance Clear (CLEAR) 10/05/16 23:50 Urine pH 5.0 (5.0 - 8.0) 10/05/16 23:50 Ur Specific [place] 1.015 (1.000-1.030) 10/05/16 23:50 Urine Protein 2+ (NEGATIVE) 10/05/16 23:50 Urine Glucose (UA) Negative (NEGATIVE) 10/05/16 23:50 Urine Ketones Negative (NEGATIVE) 10/05/16 23:50 Urine Occult Blood Negative (NEGATIVE) 10/05/16 23:50 Urine Nitrite Negative (NEGATIVE) 10/05/16 23:50 Urine Bilirubin Negative (NEGATIVE) 10/05/16 23:50 Urine Urobilinogen Normal (NORMAL) 10/05/16 23:50 Ur Leukocyte Esterase Negative (NEGATIVE) 10/05/16 23:50 Urine RBC None seen /HPF (NEGATIVE) 10/05/16 23:50 Urine WBC 0-1 /HPF (NEGATIVE) 10/05/16 23:50 Ur Squamous Epith Cells Rare /HPF (NEGATIVE) 10/05/16 23:50 Urine Bacteria Trace /HPF (NEGATIVE) 10/05/16 23:50 Ur Culture Indicated? No/not indicated 10/05/16 23:50 - Plan (1) CVA (cerebral vascular accident) Status: Acute Qualifiers: CVA mechanism: C Precerebral and cerebral artery: P Laterality of affected vessel: L Plan: There is some degree of improvement in patient's condition. I'm recommending continuation of his present management. We will follow-up.
[2016-10-07] MEDS: MILK OF MAGNESIA PO SCH (22:44)
[2016-10-07] MEDS: COLACE CAP 100 MG PO SCH (22:44)
[2016-10-08] MEDS: NS 1000 ML 1,000 ML IV SCH ×2 (02:42→15:25)
[2016-10-08] MEDS ORDERED: NORVASC TAB 2.5 MG ONE (09:00)
[2016-10-08] MEDS: ASPIRIN PO SCH (09:06)
[2016-10-08] MEDS: PLAVIX PO SCH (09:06)
[2016-10-08] MEDS: NORVASC TAB 2.5 MG PO SCH (09:06)
[2016-10-08] MEDS: ZESTRIL TAB 5 MG PO SCH (09:06)
--- NOTE | 2016-10-08 16:41 | PCM.PROG ---
Progress Note - Subjective Subjective: Patient is awake alert today. He is not in any distress. He is responding reasonably well to verbal communication via sign language. His speech is intelligible to family members and the nursing staff. He was able to name simple objects. But his speech is severely dysarthric but the daughter can make sense out of it.he was again able to stand and walk with the help of walker according to the family. Patient has some degree of weakness in the right leg according to the family. - Past Medical Family Social History Past Med/Fam/Surg Hx: No changes since H&P Allergies: Allergies No Known Drug Allergy Allergy (Verified 10/05/16 17:01) - Review of Systems ROS: No change since H&P - Vital Signs and I&O's Vital Signs: Temperature 97.8 F Pulse Rate [Apical] 53 Pulse Rate [Right Brachial] 63 Respiratory Rate 18 Blood Pressure [Right Arm] 131/80 Blood Pressure [Left Arm] 129/78 O2 Sat by Pulse Oximetry 96 Intake and Output: Intake & Output 10/06/16 10/07/16 10/08/16 10/09/16 11:59 11:59 11:59 11:59 Intake Total 958 1340 720 315 Output Total 350 1075 350 250 Balance 608 265 370 65 - Physical Exam Oriented: Normal, Time, Person, Place Eyes: Normal Ear: Normal Nose: Normal Throat: Normal Cardiovascular: Normal : Normal Auscultation: Bowel Sounds: Normal Tenderness: Normal Skin: Normal Musculoskeletal: Normal Psychiatric: Normal, Other (Neurological examination/cognitive status; patient is awake alert oriented in time place and person. Speech; patient is aphemic. Cranial nerve examination; visual braun areconfrontation. Third fourth and sixth cranial nerve; extraocular movements are full without any nystagmus. Pupils are 3.5 mm in size around equal and reactive to light. Fifth cranial nerve; facial sensations are intact bilaterally. Seventh cranial nerve; patient has markedly weakness of lower facial muscles. 8 cranial nerve; hearing is intact bilaterally. Ninth and 10th; gag is positive. 11th cranial nerve; shoulder shrug is weaker on the right side. 12th cranial nerve; tongue is deviated towards the right. Coordination; patient is unable to move the right arm. Coordination could not be tested because of markedly weakness on the right side. Gait; was not tested. Motor system examination; tone is normal. Patient is unable to lift his right arm against the gravity. He is able to lift his right leg slightly against the gravity. On the left side the strength is 5 over 5. DTRs are +1 equal and symmetrical. Plantars are mute. Sensory system examination; patient has no deficits.) Mood Description: Calm Affect: Normal Speech Pattern: Unclear, Aphasic - Laboratory and Diagnostics Result Diagrams: 10/06/16 05:35 10/06/16 05:35 Labs: Laboratory WBC 6.9 X10^3/uL (3.6-10.0) 10/06/16 05:35 RBC 5.01 X10^6/uL (4.7-6.0) 10/06/16 05:35 Hgb 14.5 g/dL (13.5-18.0) 10/06/16 05:35 Hct 43.4 % (42.0-54.0) 10/06/16 05:35 MCV 86.6 fL (80.0-100.0) 10/06/16 05:35 MCH 29.0 pg (27.0-34.0) 10/06/16 05:35 MCHC 33.4 g/dL (33.0-35.0) 10/06/16 05:35 RDW 13.9 % (11.6-16.5) 10/06/16 05:35 Plt Count 189 X10^3/uL (150.0-450.0) 10/06/16 05:35 MPV 9.5 fL (7.4-11.0) 10/06/16 05:35 Neut % 42.6 % (42.0-75.0) 10/06/16 05:35 Lymph % 42.6 % (21.0-51.0) 10/06/16 05:35 [place] % 8.7 % (0.0-13.0) 10/06/16 05:35 Eos % 5.1 % (0.9-2.9) H 10/06/16 05:35 Baso % 1.0 % (0.2-1.0) 10/06/16 05:35 Neut # 3.0 x10^3/uL (2.2-4.8) 10/06/16 05:35 Lymph # 3.0 X10^3/uL (1.3-2.9) H 10/06/16 05:35 [place] # 0.6 x10^3/uL (0.3-0.8) 10/06/16 05:35 Eos # 0.4 x10^3/uL (0.0-0.2) H 10/06/16 05:35 Baso # 0.1 X10^3/uL (0.0-0.1) 10/06/16 05:35 Absolute Nucleated RBC 0.1 /100WBC 10/06/16 05:35 INR Target Range - 10/06/16 05:35 INR 1.22 (0.8-1.3) 10/06/16 05:35 PTT 29.9 SECONDS (22.9-36.5) 10/06/16 05:35 PTT Comment - 10/06/16 05:35 Sodium 140 mmol/L (136-145) 10/06/16 05:35 Corrected Sodium TNP 10/06/16 05:35 Potassium 3.7 mmol/L (3.5-5.1) 10/06/16 05:35 Chloride 104 mmol/L (98-107) 10/06/16 05:35 Carbon Dioxide 22.8 mmol/L (21-32) 10/06/16 05:35 BUN 21 mg/dL (7-18) H 10/06/16 05:35 Creatinine 1.16 mg/dL (0.70-1.30) 10/06/16 05:35 Est GFR (MDRD) Af Amer > 60 (>60) 10/06/16 05:35 Est GFR (MDRD) Non-Af > 60 (>60) 10/06/16 05:35 Glucose 100 mg/dL (65-99) H 10/06/16 05:35 Calcium 9.0 mg/dL (8.5-10.1) 10/06/16 05:35 Corrected Calcium TNP 10/06/16 05:35 Total Bilirubin 1.90 mg/dL (0.2-1.0) H 10/06/16 05:35 AST 47 Units/L (15-37) H 10/06/16 05:35 ALT 43 Units/L (12-78) 10/06/16 05:35 Alkaline Phosphatase 97 Units/L (46-116) 10/06/16 05:35 Creatine Kinase 1314 Units/L (39-308) H 10/06/16 05:35 CK-MB (CK-2) 12.3 ng/mL (0-4.0) H* 10/06/16 05:35 CK/CKMB % Calc 0.9 % (<4) 10/06/16 05:35 Troponin I < 0.02 ng/mL (0-1.5) 10/06/16 05:35 B-Natriuretic Peptide < 5.0 pg/mL (0-79) 10/05/16 17:40 Total Protein 7.8 g/dL (6.4-8.2) 10/06/16 05:35 Albumin 3.8 g/dL (3.4-5.0) 10/06/16 05:35 Globulin 4.0 g/dL (2.5-4.5) 10/06/16 05:35 Albumin/Globulin Ratio 1.0 Ratio (1.1-2.1) L 10/06/16 05:35 Triglycerides 120 mg/dL (0-150) 10/06/16 05:35 Cholesterol 146 mg/dL (0-200) 10/06/16 05:35 LDL Cholesterol, Calc 94 mg/dL (0-100) 10/06/16 05:35 HDL Cholesterol 28 mg/dL (40-60) L 10/06/16 05:35 Cholesterol/HDL Ratio 5.2 (0.0-5.0) H 10/06/16 05:35 Specimen Type Clean catch urine 10/05/16 23:50 Urine Color Dark yellow (YELLOW) 10/05/16 23:50 Urine Appearance Clear (CLEAR) 10/05/16 23:50 Urine pH 5.0 (5.0 - 8.0) 10/05/16 23:50 Ur Specific [place] 1.015 (1.000-1.030) 10/05/16 23:50 Urine Protein 2+ (NEGATIVE) 10/05/16 23:50 Urine Glucose (UA) Negative (NEGATIVE) 10/05/16 23:50 Urine Ketones Negative (NEGATIVE) 10/05/16 23:50 Urine Occult Blood Negative (NEGATIVE) 10/05/16 23:50 Urine Nitrite Negative (NEGATIVE) 10/05/16 23:50 Urine Bilirubin Negative (NEGATIVE) 10/05/16 23:50 Urine Urobilinogen Normal (NORMAL) 10/05/16 23:50 Ur Leukocyte Esterase Negative (NEGATIVE) 10/05/16 23:50 Urine RBC None seen /HPF (NEGATIVE) 10/05/16 23:50 Urine WBC 0-1 /HPF (NEGATIVE) 10/05/16 23:50 Ur Squamous Epith Cells Rare /HPF (NEGATIVE) 10/05/16 23:50 Urine Bacteria Trace /HPF (NEGATIVE) 10/05/16 23:50 Ur Culture Indicated? No/not indicated 10/05/16 23:50 - Plan (1) CVA (cerebral vascular accident) Status: Acute Qualifiers: CVA mechanism: C Precerebral and cerebral artery: P Laterality of affected vessel: L Plan: Patient is able to speak some words and name them. The family is able to understand him. He has complaints of weakness in the right leg. According to the family it is weaker than yesterday. His neurological examination is essentially remains unchanged. If his condition deteriorates we will go the neuroimaging studies. In the meantime I will continue his present management. We will follow him up.
[2016-10-08] MEDS: COLACE CAP 100 MG PO SCH (21:29)
[2016-10-09 05:42] LABS: BASOPHILS # (AUTO) 0.1 X10^3/uL (0.0-0.1); BASOPHILS % (AUTO) 0.8 % (0.2-1.0); EOSINOPHILS # (AUTO) 0.5 x10^3/uL (0.0-0.2); HEMATOCRIT 41.6 % (42.0-54.0); HEMOGLOBIN 14.2 g/dL (13.5-18.0); LYMPHOCYTES # (AUTO) 2.2 X10^3/uL (1.3-2.9); LYMPHOCYTES % (AUTO) 34.3 % (21.0-51.0); MEAN CORPUSCULAR HEMOGLOBIN 29.3 pg (27.0-34.0); MEAN CORPUSCULAR HGB CONC 34.2 g/dL (33.0-35.0); MEAN CORPUSCULAR VOLUME 85.6 fL (80.0-100.0); MEAN PLATELET VOLUME 9.3 fL (7.4-11.0); MONOCYTES # (AUTO) 0.4 x10^3/uL (0.3-0.8); MONOCYTES % (AUTO) 6.5 % (0.0-13.0); NEUTROPHILS # (AUTO) 3.3 x10^3/uL (2.2-4.8); NEUTROPHILS % (AUTO) 51.4 % (42.0-75.0); PLATELET COUNT 188 X10^3/uL (150.0-450.0); RED BLOOD COUNT 4.86 X10^6/uL (4.7-6.0); RED CELL DISTRIBUTION WIDTH 13.7 % (11.6-16.5); WHITE BLOOD COUNT 6.5 X10^3/uL (3.6-10.0)
[2016-10-09 05:46] LABS: ALANINE AMINOTRANSFERASE 32 Units/L (12-78); ALBUMIN 3.5 g/dL (3.4-5.0); ALKALINE PHOSPHATASE 105 Units/L (46-116); ASPARTATE AMINO TRANSFERASE 22 Units/L (15-37); BLOOD UREA NITROGEN 14 mg/dL (7-18); CARBON DIOXIDE 27.4 mmol/L (21-32); CHLORIDE 103 mmol/L (98-107); CREATININE 1.03 mg/dL (0.70-1.30); GLUCOSE 101 mg/dL (65-99); SODIUM 137 mmol/L (136-145); TOTAL PROTEIN 7.5 g/dL (6.4-8.2); eGFR BLACK RACES > 60 (>60); eGFR NON BLACK RACES > 60 (>60)
[2016-10-09] MEDS: NS 1000 ML 1,000 ML IV SCH ×2 (07:02→07:03)
[2016-10-09] MEDS: MILK OF MAGNESIA PO SCH ×2 (07:02→21:44)
[2016-10-09] MEDS ORDERED: NORVASC TAB 2.5 MG ONE (09:18)
[2016-10-09] MEDS: ASPIRIN PO SCH (10:45)
[2016-10-09] MEDS: ZESTRIL TAB 5 MG PO SCH (10:45)
[2016-10-09] MEDS: NORVASC TAB 2.5 MG PO SCH (10:45)
[2016-10-09] MEDS: PLAVIX PO SCH (10:46)
--- NOTE | 2016-10-09 18:59 | PCM.PROG ---
Progress Note - Progress Note for Day of Date: 10/09/16 - Subjective Subjective: Patient was seen and examined. He is awake alert without any physical distress. He is responding very well to verbal communication via sign language. However he can name the objects. He can generate appropriate responses which are very brief and dysarthric however these are understandable by the staff and family members. He is not voicing any complaints. His strength in the right leg has improved. But he continues to be paralytic with his right arm. He is unable to lift right arm against gravity. He was able to walk with the help of walker today. - Past Medical Family Social History Past Med/Fam/Surg Hx: No changes since H&P Allergies: Allergies No Known Drug Allergy Allergy (Verified 10/05/16 17:01) - Review of Systems ROS: No change since H&P ROS changes noted: no changes in the review of systems. - Vital Signs and I&O's Vital Signs: Temperature 98 F Pulse Rate [Apical] 60 Pulse Rate [Right Brachial] 63 Respiratory Rate 18 Blood Pressure [Right Arm] 131/80 Blood Pressure [Left Arm] 138/76 O2 Sat by Pulse Oximetry 96 Intake and Output: Intake & Output 10/07/16 10/08/16 10/09/16 10/10/16 11:59 11:59 11:59 11:59 Intake Total 1340 720 765 460 Output Total 1075 350 775 300 Balance 265 370 -10 160 - Physical Exam Oriented: Normal, Time, Person, Place Eyes: Normal Ear: Normal Nose: Normal Throat: Normal Cardiovascular: Normal : Normal Auscultation: Bowel Sounds: Normal Tenderness: Normal Skin: Normal Musculoskeletal: Normal Psychiatric: Normal, Other (Neurological examination/cognitive status; patient is awake alert oriented in time place and person. Speech; patient is aphemic. Cranial nerve examination; visual braun areconfrontation. Third fourth and sixth cranial nerve; extraocular movements are full without any nystagmus. Pupils are 3.5 mm in size around equal and reactive to light. Fifth cranial nerve; facial sensations are intact bilaterally. Seventh cranial nerve; patient has markedly weakness of lower facial muscles. 8 cranial nerve; hearing is intact bilaterally. Ninth and 10th; gag is positive. 11th cranial nerve; shoulder shrug is weaker on the right side. 12th cranial nerve; tongue is deviated towards the right. Coordination; patient is unable to move the right arm. Coordination could not be tested because of markedly weakness on the right side. Gait; was not tested. Motor system examination; tone is normal. Patient is unable to lift his right arm against the gravity. He is able to lift his right leg slightly against the gravity. On the left side the strength is 5 over 5. DTRs are +1 equal and symmetrical. Plantars are mute. Sensory system examination; patient has no deficits.) Mood Description: Calm Affect: Normal Speech Pattern: Aphasic - Laboratory and Diagnostics Result Diagrams: 10/09/16 05:09 10/09/16 05:09 Labs: Laboratory WBC 6.5 X10^3/uL (3.6-10.0) 10/09/16 05:09 RBC 4.86 X10^6/uL (4.7-6.0) 10/09/16 05:09 Hgb 14.2 g/dL (13.5-18.0) 10/09/16 05:09 Hct 41.6 % (42.0-54.0) L 10/09/16 05:09 MCV 85.6 fL (80.0-100.0) 10/09/16 05:09 MCH 29.3 pg (27.0-34.0) 10/09/16 05:09 MCHC 34.2 g/dL (33.0-35.0) 10/09/16 05:09 RDW 13.7 % (11.6-16.5) 10/09/16 05:09 Plt Count 188 X10^3/uL (150.0-450.0) 10/09/16 05:09 MPV 9.3 fL (7.4-11.0) 10/09/16 05:09 Neut % 51.4 % (42.0-75.0) 10/09/16 05:09 Lymph % 34.3 % (21.0-51.0) 10/09/16 05:09 [place] % 6.5 % (0.0-13.0) 10/09/16 05:09 Eos % 7.0 % (0.9-2.9) H 10/09/16 05:09 Baso % 0.8 % (0.2-1.0) 10/09/16 05:09 Neut # 3.3 x10^3/uL (2.2-4.8) 10/09/16 05:09 Lymph # 2.2 X10^3/uL (1.3-2.9) 10/09/16 05:09 [place] # 0.4 x10^3/uL (0.3-0.8) 10/09/16 05:09 Eos # 0.5 x10^3/uL (0.0-0.2) H 10/09/16 05:09 Baso # 0.1 X10^3/uL (0.0-0.1) 10/09/16 05:09 Absolute Nucleated RBC 0.1 /100WBC 10/09/16 05:09 INR Target Range - 10/06/16 05:35 INR 1.22 (0.8-1.3) 10/06/16 05:35 PTT 29.9 SECONDS (22.9-36.5) 10/06/16 05:35 PTT Comment - 10/06/16 05:35 Sodium 137 mmol/L (136-145) 10/09/16 05:09 Corrected Sodium TNP 10/09/16 05:09 Potassium 3.8 mmol/L (3.5-5.1) 10/09/16 05:09 Chloride 103 mmol/L (98-107) 10/09/16 05:09 Carbon Dioxide 27.4 mmol/L (21-32) 10/09/16 05:09 BUN 14 mg/dL (7-18) 10/09/16 05:09 Creatinine 1.03 mg/dL (0.70-1.30) 10/09/16 05:09 Est GFR (MDRD) Af Amer > 60 (>60) 10/09/16 05:09 Est GFR (MDRD) Non-Af > 60 (>60) 10/09/16 05:09 Glucose 101 mg/dL (65-99) H 10/09/16 05:09 Calcium 9.0 mg/dL (8.5-10.1) 10/09/16 05:09 Corrected Calcium TNP 10/09/16 05:09 Total Bilirubin 1.40 mg/dL (0.2-1.0) H 10/09/16 05:09 AST 22 Units/L (15-37) 10/09/16 05:09 ALT 32 Units/L (12-78) 10/09/16 05:09 Alkaline Phosphatase 105 Units/L (46-116) 10/09/16 05:09 Creatine Kinase 1314 Units/L (39-308) H 10/06/16 05:35 CK-MB (CK-2) 12.3 ng/mL (0-4.0) H* 10/06/16 05:35 CK/CKMB % Calc 0.9 % (<4) 10/06/16 05:35 Troponin I < 0.02 ng/mL (0-1.5) 10/06/16 05:35 B-Natriuretic Peptide < 5.0 pg/mL (0-79) 10/05/16 17:40 Total Protein 7.5 g/dL (6.4-8.2) 10/09/16 05:09 Albumin 3.5 g/dL (3.4-5.0) 10/09/16 05:09 Globulin 4.0 g/dL (2.5-4.5) 10/09/16 05:09 Albumin/Globulin Ratio 0.9 Ratio (1.1-2.1) L 10/09/16 05:09 Triglycerides 120 mg/dL (0-150) 10/06/16 05:35 Cholesterol 146 mg/dL (0-200) 10/06/16 05:35 LDL Cholesterol, Calc 94 mg/dL (0-100) 10/06/16 05:35 HDL Cholesterol 28 mg/dL (40-60) L 10/06/16 05:35 Cholesterol/HDL Ratio 5.2 (0.0-5.0) H 10/06/16 05:35 Specimen Type Clean catch urine 10/05/16 23:50 Urine Color Dark yellow (YELLOW) 10/05/16 23:50 Urine Appearance Clear (CLEAR) 10/05/16 23:50 Urine pH 5.0 (5.0 - 8.0) 10/05/16 23:50 Ur Specific [place] 1.015 (1.000-1.030) 10/05/16 23:50 Urine Protein 2+ (NEGATIVE) 10/05/16 23:50 Urine Glucose (UA) Negative (NEGATIVE) 10/05/16 23:50 Urine Ketones Negative (NEGATIVE) 10/05/16 23:50 Urine Occult Blood Negative (NEGATIVE) 10/05/16 23:50 Urine Nitrite Negative (NEGATIVE) 10/05/16 23:50 Urine Bilirubin Negative (NEGATIVE) 10/05/16 23:50 Urine Urobilinogen Normal (NORMAL) 10/05/16 23:50 Ur Leukocyte Esterase Negative (NEGATIVE) 10/05/16 23:50 Urine RBC None seen /HPF (NEGATIVE) 10/05/16 23:50 Urine WBC 0-1 /HPF (NEGATIVE) 10/05/16 23:50 Ur Squamous Epith Cells Rare /HPF (NEGATIVE) 10/05/16 23:50 Urine Bacteria Trace /HPF (NEGATIVE) 10/05/16 23:50 Ur Culture Indicated? No/not indicated 10/05/16 23:50 - Plan (1) CVA (cerebral vascular accident) Status: Acute Qualifiers: CVA mechanism: C Precerebral and cerebral artery: P Laterality of affected vessel: L Plan: Patient has improved subjectively. On examination he has more strength in the right leg compared to what he had yesterday. He was able to walk with the help of walker. Patient is scheduled to have CT angiogram of carotid system and echocardiogram. I'm recommending continuation of his present management. He will be followed up.
[2016-10-09] MEDS: COLACE CAP 100 MG PO SCH (21:41)
[2016-10-10 05:33] LABS: BASOPHILS # (AUTO) 0.1 X10^3/uL (0.0-0.1); BASOPHILS % (AUTO) 0.9 % (0.2-1.0); EOSINOPHILS # (AUTO) 0.4 x10^3/uL (0.0-0.2); EOSINOPHILS % (AUTO) 7.1 % (0.9-2.9); HEMATOCRIT 41.5 % (42.0-54.0); HEMOGLOBIN 14.5 g/dL (13.5-18.0); LYMPHOCYTES # (AUTO) 2.1 X10^3/uL (1.3-2.9); LYMPHOCYTES % (AUTO) 33.1 % (21.0-51.0); MEAN CORPUSCULAR HEMOGLOBIN 29.7 pg (27.0-34.0); MEAN CORPUSCULAR VOLUME 84.8 fL (80.0-100.0); MEAN PLATELET VOLUME 9.3 fL (7.4-11.0); MONOCYTES # (AUTO) 0.4 x10^3/uL (0.3-0.8); MONOCYTES % (AUTO) 7.1 % (0.0-13.0); NEUTROPHILS # (AUTO) 3.3 x10^3/uL (2.2-4.8); NEUTROPHILS % (AUTO) 51.8 % (42.0-75.0); PLATELET COUNT 192 X10^3/uL (150.0-450.0); RED BLOOD COUNT 4.89 X10^6/uL (4.7-6.0); RED CELL DISTRIBUTION WIDTH 13.6 % (11.6-16.5); WHITE BLOOD COUNT 6.4 X10^3/uL (3.6-10.0)
[2016-10-10 05:39] LABS: ALANINE AMINOTRANSFERASE 31 Units/L (12-78); ALBUMIN 3.5 g/dL (3.4-5.0); ALKALINE PHOSPHATASE 114 Units/L (46-116); ASPARTATE AMINO TRANSFERASE 19 Units/L (15-37); BLOOD UREA NITROGEN 15 mg/dL (7-18); CALCIUM 8.9 mg/dL (8.5-10.1); CARBON DIOXIDE 25.3 mmol/L (21-32); CHLORIDE 102 mmol/L (98-107); CREATININE 1.03 mg/dL (0.70-1.30); GLUCOSE 104 mg/dL (65-99); SODIUM 138 mmol/L (136-145); TOTAL PROTEIN 7.7 g/dL (6.4-8.2); eGFR BLACK RACES > 60 (>60); eGFR NON BLACK RACES > 60 (>60)
[2016-10-10] MEDS ORDERED: NORVASC TAB 2.5 MG ONE (09:39)
[2016-10-10] MEDS: NORVASC TAB 2.5 MG PO SCH (10:33)
[2016-10-10] MEDS: PLAVIX PO SCH (10:33)
[2016-10-10] MEDS: ZESTRIL TAB 5 MG PO SCH (10:33)
[2016-10-10] MEDS: ASPIRIN PO SCH (10:34)
[2016-10-10] MEDS ORDERED: NS 100 ML IV 100 ML IV ONE (13:38)
[2016-10-10] MEDS: COLACE CAP 100 MG PO SCH (21:31)
[2016-10-10] MEDS: MILK OF MAGNESIA PO SCH (21:31)
--- NOTE | 2016-10-11 08:23 | CT ---
CT ANGIOGRAM OF THE NECK WITH IV CONTRAST CLINICAL INDICATION: CVA and right-sided weakness TECHNIQUE: Images were obtained through the neck per standard CTA protocol. Multiplanar reformatted, MIP, and volume rendered images were generated from the CT dataset.3D reconstructions were performe d. Dose reduction techniques including Automated Exposure Control (AEC) and adjustment of mA and kV were utlized. COMPARISON: None. FINDINGS: The imaged aortic arch is normal. The origins of the brachiocephalic, bilateral common carotid, layla ateral subclavian, and bilateral vertebral arteries demonstrate no significant stenosis.The bilatera l internal and external carotid arteries are patent. There is no grossly significant ICA stenosis.Th e cervical vertebral arteries are normal.There is no evidence of arterial dissection, significant st enosis, occlusion, extravasation of contrast material, arteriovenous fistula, or pseudoaneurysm.The visualized soft tissues of the neck appear normal.The visualized osseous structures are normal. IMPRESSION: 1. No hemodynamically significant stenosis of the carotid arteries bilaterally. Reported By:
[2016-10-11] MEDS ORDERED: NORVASC TAB 2.5 MG ONE (08:56)
[2016-10-11] MEDS: NORVASC TAB 2.5 MG PO SCH (09:15)
[2016-10-11] MEDS: PLAVIX PO SCH (09:15)
[2016-10-11] MEDS: ZESTRIL TAB 5 MG PO SCH (09:15)
[2016-10-11] MEDS: ASPIRIN PO SCH (09:15)
[2016-10-11 13:19] VITALS: BP 151/80
== END 2016-10-11 12:30 | disposition home or self-care (01) | DRG 65 ==
LOC: ER 17:25 → ICU 21:10 → MED/SURG 10-08 15:20
PROVIDERS: ADMIT Internal Medicine; ATTEND Internal Medicine
DX: I63.8 Other cerebral infarction (principal); G81.91 Hemiplegia, unspecified affecting right dominant side; R29.810 Facial weakness; R47.81 Slurred speech; R47.01 Aphasia; R13.11 Dysphagia, oral phase; R26.89 Other abnormalities of gait and mobility; Z86.19 Personal history of other infectious and parasitic diseases; Z86.73 Personal history of transient ischemic attack (TIA), and cerebral infarction without residual deficits
CPT/HCPCS: 36415; 70496; 70498; 70544; 70551; 71010; 74181; 80053; 80061; 81001; 82550; 82553; 83880; 84484; 85025; 85610; 85730; 92523; 93005; 93010; 93306; 95819; 96365; 97535; 99231; 99284; A4222

== ENCOUNTER 2016-11-19 13:24 | Emergency (ER) | payer MEDICAID ==
[2016-11-19 13:29] VITALS: BP 150/91; BMI 27.1
--- NOTE | 2016-11-19 13:56 | DR.GENAD ---
HPI - PCP Primary Care Physician: dr france - HPI Comment HPI Comment: BELOW. - Complaint/Symptoms Chief Complaint Doctors Comments: WEAKNESS, MALAISE AND DIZZINESS TIMES FEW DAYS. GETTING WORSE. Chief Complaint:: pt hasnt been feeling good the past couple of days he has been really light headed - Nurses notes reviewed Nurses Notes Review: Yes - Source History Provided: Patient - Mode of Arrival Mode of Arrival: Ambulatory - Timing Onset of Chief Complaint: 11/17/16 Came on: Suddenly - Duration Duration: Constant Duration: Days - Severity Severity: Moderate PMH - PMH Past Medical History: Yes Past Medical History: CVA, Hypertension, Liver Disease Past Medical History Comment: CVA Past Surgical History: Yes Surgical History: Ortho Surgery - Family History History of Family Medical Conditions: Yes Family Medical History: Diabetes Mellitus, Cancer, Hypertension - Social History Does patient currently use any type of tobacco product: No Have you used tobacco products in the last 12 months: No Type of Tobacco Use: None Does any household member use tobacco: No Alcohol Use: None Do you use any recreational Drugs:: No Lives With: Family Lives Where: Home - infectious screening In the last 2 months have you had wt loss of >10#?: NO Have you had fever, night sweats or hemotysis?: No Have you traveled outside the country in the last 6 months?: No Isolation: Standard ROS - Review of Systems Constitutional: No Symptoms Reported Eyes: No Symptoms Reported ENTM: No Symptoms Reported Respiratoy: No Symptoms Reported Cardiovascular: No Symptoms Reported Gastrointestinal/Abdominal: No Symptoms Reported Genitourinary: No Symptoms Reported Neurological: No Symptoms Reported Musculoskeletal: No Symptoms Reported Integumentary: No Symptoms Reported Hematologic/Lymphatic: No Symptoms Reported Endocrine: No Symptoms Reported Psychiatric: No Symptoms Reported All Other Systems: Reviewed and Negative PE - Vital Signs Vitals: Temperature 98 F Pulse Rate 63 Respiratory Rate 18 Blood Pressure [Right Arm] 131/80 Blood Pressure [Left Arm] 151/80 Blood Pressure [Standing] 189/113 Blood Pressure [Sitting] 174/110 Blood Pressure [Lying] 187/116 Blood Pressure 150/91 O2 Sat by Pulse Oximetry 100 - General Limitations: No Limitations General Appearance: Alert - Head Head Exam: Normal Inspection - Eyes Eye exam: Normal Appearance - ENT ENT Exam: Normal External Ear Exam External Ear Exam: Normal External Inspection TM/Canal Exam: Bilateral Normal Nose Exam: Normal Nose Exam Mouth Exam: Normal Inspection Throat Exam: Normal Inspection - Neck Neck Exam: Trachea Midline - Chest Chest Inspection: Symmetric Chest Wall Rise - Respiratory Respiratory Exam: Normal Lung Sounds Bilat Respiratory Exam: Bilateral Clear to Auscultation - Cardiovascular Cardiovascular Exam: Regular Rate, Normal Rhythm, Normal Heart Sounds - Abdominal Exam Abdominal Exam: Normal Bowel Sounds, Soft. negative: Tenderness - Extremities Extremities Exam: Normal Inspection - Back Back Exam: Normal Inspection - Neurologic Neurological Exam: Alert, Oriented X3 - Psychiatric Psychiatric Exam: Normal Affect, Normal Mood - Skin Skin Exam: Normal Color MDM - Differential Diagnosis Differential Diagnosis: DIZZINESS, VERTIGO, CVA, TIA, LABINRITHITIS, OTITIS MEDIA Course - Treatment Treatment: SEE ORDERS. - Education/Counseling Education/Counseling: Patient, Education Educated On: Diagnosis, Needs for Follow Up ROR - Labs Reviewed Laboratory Results Reviewed?: Yes Result Diagrams: 11/19/16 14:09 11/19/16 14:09 Laboratory: WBC 5.3 X10^3/uL (3.6-10.0) 11/19/16 14:09 RBC 4.80 X10^6/uL (4.7-6.0) 11/19/16 14:09 Hgb 14.2 g/dL (13.5-18.0) 11/19/16 14:09 Hct 40.8 % (42.0-54.0) L 11/19/16 14:09 MCV 84.9 fL (80.0-100.0) 11/19/16 14:09 MCH 29.5 pg (27.0-34.0) 11/19/16 14:09 MCHC 34.8 g/dL (33.0-35.0) 11/19/16 14:09 RDW 13.5 % (11.6-16.5) 11/19/16 14:09 Plt Count 232 X10^3/uL (150.0-450.0) 11/19/16 14:09 MPV 9.0 fL (7.4-11.0) 11/19/16 14:09 Neut % 52.4 % (42.0-75.0) 11/19/16 14:09 Lymph % 33.9 % (21.0-51.0) 11/19/16 14:09 [place] % 5.6 % (0.0-13.0) 11/19/16 14:09 Eos % 7.2 % (0.9-2.9) H 11/19/16 14:09 Baso % 0.9 % (0.2-1.0) 11/19/16 14:09 Neut # 2.8 x10^3/uL (2.2-4.8) 11/19/16 14:09 Lymph # 1.8 X10^3/uL (1.3-2.9) 11/19/16 14:09 [place] # 0.3 x10^3/uL (0.3-0.8) 11/19/16 14:09 Eos # 0.4 x10^3/uL (0.0-0.2) H 11/19/16 14:09 Baso # 0.0 X10^3/uL (0.0-0.1) 11/19/16 14:09 Absolute Nucleated RBC 0.2 /100WBC 11/19/16 14:09 Sodium 140 mmol/L (136-145) 11/19/16 14:09 Corrected Sodium TNP 11/19/16 14:09 Potassium 3.8 mmol/L (3.5-5.1) 11/19/16 14:09 Chloride 105 mmol/L (98-107) 11/19/16 14:09 Carbon Dioxide 28.8 mmol/L (21-32) 11/19/16 14:09 BUN 11 mg/dL (7-18) 11/19/16 14:09 Creatinine 0.98 mg/dL (0.70-1.30) 11/19/16 14:09 Est GFR (MDRD) Af Amer > 60 (>60) 11/19/16 14:09 Est GFR (MDRD) Non-Af > 60 (>60) 11/19/16 14:09 Glucose 106 mg/dL (65-99) H 11/19/16 14:09 Calcium 9.0 mg/dL (8.5-10.1) 11/19/16 14:09 Corrected Calcium TNP 11/19/16 14:09 Total Bilirubin 0.70 mg/dL (0.2-1.0) 11/19/16 14:09 AST 16 Units/L (15-37) 11/19/16 14:09 ALT 27 Units/L (12-78) 11/19/16 14:09 Alkaline Phosphatase 119 Units/L (46-116) H 11/19/16 14:09 Creatine Kinase 116 Units/L (39-308) 11/19/16 14:09 CK-MB (CK-2) < 1.0 ng/mL (0-4.0) 11/19/16 14:09 CK/CKMB % Calc 0.9 % (<4) 11/19/16 14:09 Troponin I < 0.02 ng/mL (0-1.5) 11/19/16 14:09 B-Natriuretic Peptide 37.1 pg/mL (0-79) 11/19/16 14:09 Total Protein 7.7 g/dL (6.4-8.2) 11/19/16 14:09 Albumin 3.5 g/dL (3.4-5.0) 11/19/16 14:09 Globulin 4.2 g/dL (2.5-4.5) 11/19/16 14:09 Albumin/Globulin Ratio 0.8 Ratio (1.1-2.1) L 11/19/16 14:09 Specimen Type Clean catch urine 11/19/16 14:40 Urine Color [place] (YELLOW) 11/19/16 14:40 Urine Appearance Hazy (CLEAR) 11/19/16 14:40 Urine pH 5.0 (5.0 - 8.0) 11/19/16 14:40 Ur Specific [place] 1.030 (1.000-1.030) 11/19/16 14:40 Urine Protein 2+ (NEGATIVE) 11/19/16 14:40 Urine Glucose (UA) Negative (NEGATIVE) 11/19/16 14:40 Urine Ketones Negative (NEGATIVE) 11/19/16 14:40 Urine Occult Blood 1+ (NEGATIVE) 11/19/16 14:40 Urine Nitrite Negative (NEGATIVE) 11/19/16 14:40 Urine Bilirubin 1+ (NEGATIVE) 11/19/16 14:40 Urine Urobilinogen 1+ (NORMAL) 11/19/16 14:40 Ur Leukocyte Esterase 1+ (NEGATIVE) 11/19/16 14:40 Urine RBC Rare /HPF (NEGATIVE) 11/19/16 14:40 Urine WBC Rare /HPF (NEGATIVE) 11/19/16 14:40 Ur Squamous Epith Cells Few /HPF (NEGATIVE) 11/19/16 14:40 Urine Bacteria Trace /HPF (NEGATIVE) 11/19/16 14:40 Urine Mucus Moderate /HPF (NEGATIVE) 11/19/16 14:40 Ur Culture Indicated? No/not indicated 11/19/16 14:40 - XRAY XRAY Interpreted by: Radiologist XRAY Findings: REPORT DISCUSS [facility] PATIENT. - Diagnosis Discharge Problem: Dizziness - Discharge Plan Disposition: 01 HOME, SELF-CARE Condition: Stable - Follow ups/Referrals Follow ups/Referrals: Lyndon FRANCE [Primary Care Provider] - 11/21/16 - Instructions Instructions: Dizziness, [id number] Additional Instructions: RETURN TO ED IF WORSE.
[2016-11-19 14:35] LABS: BLOOD UREA NITROGEN 11 mg/dL (7-18); CARBON DIOXIDE 28.8 mmol/L (21-32); CHLORIDE 105 mmol/L (98-107); CREATININE 0.98 mg/dL (0.70-1.30); GLUCOSE 106 mg/dL (65-99); SODIUM 140 mmol/L (136-145); TROPONIN I < 0.02 ng/mL (0-1.5); eGFR BLACK RACES > 60 (>60); eGFR NON BLACK RACES > 60 (>60)
[2016-11-19 14:37] LABS: BASOPHILS % (AUTO) 0.9 % (0.2-1.0); EOSINOPHILS # (AUTO) 0.4 x10^3/uL (0.0-0.2); EOSINOPHILS % (AUTO) 7.2 % (0.9-2.9); HEMATOCRIT 40.8 % (42.0-54.0); HEMOGLOBIN 14.2 g/dL (13.5-18.0); LYMPHOCYTES # (AUTO) 1.8 X10^3/uL (1.3-2.9); LYMPHOCYTES % (AUTO) 33.9 % (21.0-51.0); MEAN CORPUSCULAR HEMOGLOBIN 29.5 pg (27.0-34.0); MEAN CORPUSCULAR HGB CONC 34.8 g/dL (33.0-35.0); MEAN CORPUSCULAR VOLUME 84.9 fL (80.0-100.0); MONOCYTES # (AUTO) 0.3 x10^3/uL (0.3-0.8); MONOCYTES % (AUTO) 5.6 % (0.0-13.0); NEUTROPHILS # (AUTO) 2.8 x10^3/uL (2.2-4.8); NEUTROPHILS % (AUTO) 52.4 % (42.0-75.0); PLATELET COUNT 232 X10^3/uL (150.0-450.0); RED CELL DISTRIBUTION WIDTH 13.5 % (11.6-16.5); WHITE BLOOD COUNT 5.3 X10^3/uL (3.6-10.0)
[2016-11-19 14:39] LABS: ALANINE AMINOTRANSFERASE 27 Units/L (12-78); ALBUMIN 3.5 g/dL (3.4-5.0); ALKALINE PHOSPHATASE 119 Units/L (46-116); ASPARTATE AMINO TRANSFERASE 16 Units/L (15-37); CKMB % 0.9 % (<4); CREATINE KINASE 116 Units/L (39-308); CREATINE KINASE MB < 1.0 ng/mL (0-4.0); TOTAL PROTEIN 7.7 g/dL (6.4-8.2)
[2016-11-19 14:42] LABS: B-TYPE NATRIURETIC PEPTIDE 37.1 pg/mL (0-79)
[2016-11-19 14:49] LABS: BILIRUBIN,URINE 1+ (NEGATIVE); BLOOD/HEMOGLOBIN,URINE 1+ (NEGATIVE); GLUCOSE, URINE NEGATIVE (NEGATIVE); KETONES,URINE NEGATIVE (NEGATIVE); LEUKOCYTE ESTERASE ,URINE 1+ (NEGATIVE); NITRITES,URINE NEGATIVE (NEGATIVE); PROTEIN,URINE 2+ (NEGATIVE); UROBILINOGEN,URINE 1+ (NORMAL)
[2016-11-19 14:58] LABS: APPEARANCE,URINE HAZY (CLEAR); COLOR,URINE AMBER (YELLOW)
[2016-11-19 14:59] LABS: BACTERIA,URINE TRACE /HPF (NEGATIVE); MUCUS,URINE MODERATE /HPF (NEGATIVE); RBC,URINE RARE /HPF (NEGATIVE); SQUAMOUS EPITHELIAL CELL,UR FEW /HPF (NEGATIVE)
--- NOTE | 2016-11-19 15:01 | CT ---
HISTORY: Dizziness. Study: CT brain without contrast Comparison: CT brain done September 30, 2016 and MRI of the brain done October 13, 2016. Technique: Multiple axial images of the brain were obtained from the skull base to the vertex without administr ation of IV contrast. Coronal and sagittal images are also reviewed. Dose reduction techniques utili zed automatic exposure control. Findings: No acute intraparenchymal hemorrhage or mass can be identified. No extra-axial fluid collections ar e seen. There is decreased attenuation density present involving the left fronto parietal region ex tending into the anterior centrum semiovale area. This corresponds to the area of acute or subacute infarction is seen on the prior diffusion-weighted images of the MRI scan. No new areas of decreased attenuation density are seen . The ventricular system is symmetric and nondilated. There is chroni c periventricular white matter disease observed and age-appropriate generalized atrophy. IMPRESSION: 1. No acute intracranial process can be identified. The focus of subacute or acute infarction invol ving the left frontoparietal periventricular white matter/centrum semiovale region is unchanged from the prior MRI study. 2. Chronic periventricular white matter disease likely on the basis of small vessel ischemic change . 3. Age-appropriate atrophic changes are seen. Reported By:
--- NOTE | 2016-11-19 17:34 | RAD ---
HISTORY: Pain. Lightheadedness. Study: Single-view chest, done portably Comparison: October 05, 2016 Findings: Trachea is midline. The heart size is normal. There is mild hyperinflation of the lungs without infi ltrate, CHF, pleural fluid or pneumothorax. Osseous structures are intact. IMPRESSION: Hyperinflation of the lungs without acute abnormality. Reported By:
== END 2016-11-19 15:51 | disposition home or self-care (01) ==
LOC: ER 13:24
DX: R42 Dizziness and giddiness (principal)
CPT/HCPCS: 36415; 70450; 71010; 80053; 81001; 82550; 82553; 83880; 84484; 85025; 93005; 93010; 99282; 99283

== ENCOUNTER → 2017-01-24 | Outpatient (CLI) | payer MEDICAID | LOC: RT 13:10 | PROVIDERS: ATTEND Psychiatry & Neurology Neurology | DX: R55 Syncope and collapse (principal) | CPT/HCPCS: 95819 ==

== ENCOUNTER → 2017-01-31 | Outpatient (CLI) | payer MEDICAID ==
[~2017-01-31] MED LIST: NS 250 ML IV 250 ML IV ONE; NS 500 ML IV 0 ML IV ONE
[2017-01-31 10:09] LABS: CREATININE 1.05 mg/dL (0.70-1.30)
--- NOTE | 2017-01-31 12:49 | MRI ---
MRA HEAD WITHOUT CONTRAST CLINICAL HISTORY: 66-year-old male with headaches and history of stroke with provided history of acut e embolic stroke. COMPARISONS: CT head November 19, 2016. TECHNIQUE: 3-D time of flight magnetic resonance angiographic images of the [place] were obt ained and presented as maximum intensity projection images in rotating format. FINDINGS: Right dominant vertebral artery. Bilateral PICA are present. The basilar artery is normal in appearan ce and gives off normal bilateral AICA superior cerebellar and small caliber posterior cerebral arter ies. Large caliber bilateral posterior communicating arteries are the predominant supply of the P2 se gments. The internal carotid arteries are normal from the distal cervical segments to the carotid ter minus. The middle and anterior cerebral arteries are normal in course and caliber. There is a small c aliber anterior communicating artery. IMPRESSION: 1. No aneurysm, high-grade stenosis, complete occlusion, dissection or vascular malformation. 2. Large caliber bilateral posterior communicating arteries are of the predominant supply of the P2 s egments bilaterally. Reported By:
--- NOTE | 2017-01-31 13:35 | CT ---
CT ANGIOGRAM OF THE HEAD WITHOUT AND WITH IV CONTRAST CLINICAL INDICATION: History of aneurysm. TECHNIQUE: A precontrast transaxial head CT was first performed. Images were obtained through the [facility] d per standard CTA protocol. Multiplanar reformatted, MIP, and volume rendered images were generated from the CT dataset.Dose reduction techniques including Automated Exposure Control (AEC) and adjustme nt of mA and kV were utlized. COMPARISON: Multiple examinations of the head and brain including a MRA performed earlier today. Garth tional studies include MRA of the brain 10/13/2016, MRA of the brain 10/06/2016, CTA of the brain 2016. All of these specifically note no aneurysm. FINDINGS: HEAD CT: Expected interval evolution of left MCA infarct in the frontal. There is no evidence of acut e infarction, intracranial hemorrhage, mass or mass effect, or abnormal extra-axial collection. The d ensity of the larger dural venous sinuses is normal. The ventricles are normal in size, shape and pos ition. The skull base and calvarium are normal. The included paranasal sinuses and mastoid air cells are predominantly clear. HEAD CTA: The petrous, cavernous, and supraclinoid segments of the bilateral internal carotid arteries (ICAs) a re normal. The ophthalmic artery origins are well-visualized and normal. The anterior and middle cere bral arteries are normal bilaterally. The anterior communicating artery is well-visualized. The post erior communicating arteries are well-visualized and are large and the predominant source of perfusio n of the bilateral [employer]. The vertebral arteries and basilar artery are normal. The posterior cerebral arteries are normal. No saccular aneurysm, proximal arterial cutoff, intra-arterial clot, or hemodynamically significant i ntracranial arterial stenosis is demonstrated. While the study was optimized for arterial evaluation, the dural venous sinuses demonstrates no evide nce of thrombosis. IMPRESSION: 1. No evidence of aneurysm on this examination nor on the 4 prior vascular examinations of the brain dating back to 10/05/2016. 2. Developing encephalomalacia in region of known infarct in the left frontal lobe. Reported By:
== END ==
LOC: RAD 09:24
PROVIDERS: ATTEND Psychiatry & Neurology Neurology
DX: I67.1 Cerebral aneurysm, nonruptured (principal); I63.8 Other cerebral infarction
CPT/HCPCS: 36415; 70496; 70544; 82565; 84520; A4222

== ENCOUNTER → 2017-02-15 | Outpatient (CLI) | payer MEDICAID | LOC: RAD 13:17 | PROVIDERS: ATTEND Psychiatry & Neurology Neurology | DX: I63.8 Other cerebral infarction (principal) | CPT/HCPCS: 93306 ==

== ENCOUNTER 2017-04-03 10:54 | Emergency (ER) | payer MEDICAID ==
[2017-04-03 10:58] VITALS: BP 142/85; BMI 26.2
--- NOTE | 2017-04-03 11:36 | DR.GENAD ---
HPI - PCP Primary Care Physician: EDILMA - HPI Comment HPI Comment: STARTED TODAY. HAVE SWELLING FOR SEVERAL WEEKS WITH MILD PAIN. WORSE TODAY. NO FEVER, DYSURIA OR PENILE DISCHARGE. - Complaint/Symptoms Chief Complaint Doctors Comments: RIGHT SCROTUM SWOLLEN AND HURTING. Chief Complaint:: PT C/O PAIN TO THE SCOTUM THAT HAS BEEN GOING FOR A YEAR AND DR. FRANCE HAS BEEN TREATING HIM FOR HIS PROSTATE.. PT HAS SHAPE PAIN TO THE SCROTUM WHEN HE MOVES .. - Nurses notes reviewed Nurses Notes Review: Yes - Source History Provided: Patient - Mode of Arrival Mode of Arrival: Ambulatory - Timing Onset of Chief Complaint: 04/03/16 Came on: Suddenly - Duration Duration: Constant Duration: Hours - Severity Severity: Moderate PMH - PMH Past Medical History: Yes Past Medical History: CVA, Hypertension, Liver Disease Past Surgical History: No Surgical History: Ortho Surgery - Family History History of Family Medical Conditions: Yes Family Medical History: Diabetes Mellitus, Cancer, Hypertension - Social History Does patient currently use any type of tobacco product: No Have you used tobacco products in the last 12 months: No Type of Tobacco Use: None Does any household member use tobacco: No Alcohol Use: None Do you use any recreational Drugs:: No Lives With: Family Lives Where: Home - infectious screening In the last 2 months have you had wt loss of >10#?: NO Have you had fever, night sweats or hemotysis?: No Have you traveled outside the country in the last 6 months?: No Isolation: Standard ROS - Review of Systems Constitutional: No Symptoms Reported Eyes: No Symptoms Reported ENTM: No Symptoms Reported Respiratoy: No Symptoms Reported Cardiovascular: No Symptoms Reported Gastrointestinal/Abdominal: No Symptoms Reported Genitourinary: Other (SCRTUM SWOLLEN AND TENDER. TESTICLE SLIGHTLY TENDER.) Neurological: No Symptoms Reported Musculoskeletal: No Symptoms Reported, Other (RUE IN SLING.) Integumentary: No Symptoms Reported Hematologic/Lymphatic: No Symptoms Reported Endocrine: No Symptoms Reported All Other Systems: Reviewed and Negative PE - Vital Signs Vitals: Temperature 98.2 F Pulse Rate 76 Respiratory Rate 18 Blood Pressure [Right Arm] 131/80 Blood Pressure [Left Arm] 151/80 Blood Pressure [Standing] 189/113 Blood Pressure [Sitting] 174/110 Blood Pressure [Lying] 187/116 Blood Pressure 142/85 O2 Sat by Pulse Oximetry 98 - General Limitations: No Limitations General Appearance: Alert - Head Head Exam: Normal Inspection - Eyes Eye exam: Normal Appearance - ENT ENT Exam: Normal External Ear Exam External Ear Exam: Normal External Inspection TM/Canal Exam: Bilateral Normal Nose Exam: Normal Nose Exam Mouth Exam: Normal Inspection Throat Exam: Normal Inspection - Neck Neck Exam: Trachea Midline - Chest Chest Inspection: Symmetric Chest Wall Rise - Respiratory Respiratory Exam: Normal Lung Sounds Bilat Respiratory Exam: Bilateral Clear to Auscultation - Cardiovascular Cardiovascular Exam: Regular Rate, Normal Rhythm, Normal Heart Sounds - Abdominal Exam Abdominal Exam: Normal Bowel Sounds, Soft, Other (SCROTUM SWOLLEN AND TESTICLES SLIGHTLY TENDER.). negative: Tenderness - Extremities Extremities Exam: Normal Inspection - Back Back Exam: Normal Inspection - Neurologic Neurological Exam: Alert, Oriented X3 - Psychiatric Psychiatric Exam: Normal Affect, Normal Mood - Skin Skin Exam: Erythema MDM - Additional Information Additional Information Obtained From: Family - Differential Diagnosis Differential Diagnosis: SCOTAL PAIN, HYDROCELE, EPIDYDIMITIS, UTI, ORCHITIS Course - Treatment Treatment: SEE ORDERS. - Education/Counseling Education/Counseling: Patient, Family, Education Educated On: Diagnosis, Needs for Follow Up ROR - Labs Reviewed Result Diagrams: 04/03/17 12:28 04/03/17 12:28 Laboratory: WBC 5.0 X10^3/uL (3.6-10.0) 04/03/17 12:28 RBC 4.96 X10^6/uL (4.7-6.0) 04/03/17 12:28 Hgb 14.2 g/dL (13.5-18.0) 04/03/17 12:28 Hct 41.2 % (42.0-54.0) L 04/03/17 12:28 MCV 83.0 fL (80.0-100.0) 04/03/17 12:28 MCH 28.7 pg (27.0-34.0) 04/03/17 12:28 MCHC 34.5 g/dL (33.0-35.0) 04/03/17 12:28 RDW 13.9 % (11.6-16.5) 04/03/17 12:28 Plt Count 181 X10^3/uL (150.0-450.0) 04/03/17 12:28 MPV 9.1 fL (7.4-11.0) 04/03/17 12:28 Neut % 43.7 % (42.0-75.0) 04/03/17 12:28 Lymph % 39.3 % (21.0-51.0) 04/03/17 12:28 [place] % 5.8 % (0.0-13.0) 04/03/17 12:28 Eos % 10.1 % (0.9-2.9) H 04/03/17 12:28 Baso % 1.1 % (0.2-1.0) H 04/03/17 12:28 Neut # 2.2 x10^3/uL (2.2-4.8) 04/03/17 12:28 Lymph # 2.0 X10^3/uL (1.3-2.9) 04/03/17 12:28 [place] # 0.3 x10^3/uL (0.3-0.8) 04/03/17 12:28 Eos # 0.5 x10^3/uL (0.0-0.2) H 04/03/17 12:28 Baso # 0.1 X10^3/uL (0.0-0.1) 04/03/17 12:28 Absolute Nucleated RBC 0.0 /100WBC 04/03/17 12:28 Sodium 134 mmol/L (136-145) L 04/03/17 12:28 Corrected Sodium TNP 04/03/17 12:28 Potassium 4.1 mmol/L (3.5-5.1) 04/03/17 12:28 Chloride 101 mmol/L (98-107) 04/03/17 12:28 Carbon Dioxide 27.9 mmol/L (21-32) 04/03/17 12:28 BUN 17 mg/dL (7-18) 04/03/17 12:28 Creatinine 1.22 mg/dL (0.70-1.30) 04/03/17 12:28 Est GFR (MDRD) Af Amer > 60 (>60) 04/03/17 12:28 Est GFR (MDRD) Non-Af > 60 (>60) 04/03/17 12:28 Glucose 104 mg/dL (65-99) H 04/03/17 12:28 Calcium 9.5 mg/dL (8.5-10.1) 04/03/17 12:28 Corrected Calcium TNP 04/03/17 12:28 Total Bilirubin 0.90 mg/dL (0.2-1.0) 04/03/17 12:28 AST 15 Units/L (15-37) 04/03/17 12:28 ALT 16 Units/L (12-78) 04/03/17 12:28 Alkaline Phosphatase 118 Units/L (46-116) H 04/03/17 12:28 Total Protein 7.6 g/dL (6.4-8.2) 04/03/17 12:28 Albumin 3.6 g/dL (3.4-5.0) 04/03/17 12:28 Globulin 4.0 g/dL (2.5-4.5) 04/03/17 12:28 Albumin/Globulin Ratio 0.9 Ratio (1.1-2.1) L 04/03/17 12:28 Specimen Type Clean catch urine 04/03/17 12:59 Urine Color Dark yellow (YELLOW) 04/03/17 12:59 Urine Appearance Clear (CLEAR) 04/03/17 12:59 Urine pH 5.0 (5.0 - 8.0) 04/03/17 12:59 Ur Specific [place] 1.030 (1.000-1.030) 04/03/17 12:59 Urine Protein 1+ (NEGATIVE) 04/03/17 12:59 Urine Glucose (UA) Negative (NEGATIVE) 04/03/17 12:59 Urine Ketones Negative (NEGATIVE) 04/03/17 12:59 Urine Occult Blood Negative (NEGATIVE) 04/03/17 12:59 Urine Nitrite Negative (NEGATIVE) 04/03/17 12:59 Urine Bilirubin Negative (NEGATIVE) 04/03/17 12:59 Urine Urobilinogen 1+ (NORMAL) 04/03/17 12:59 Ur Leukocyte Esterase Negative (NEGATIVE) 04/03/17 12:59 Urine RBC None seen /HPF (NEGATIVE) 04/03/17 12:59 Urine WBC 0-1 /HPF (NEGATIVE) 04/03/17 12:59 Ur Squamous Epith Cells Rare /HPF (NEGATIVE) 04/03/17 12:59 Urine Bacteria 1+ /HPF (NEGATIVE) 04/03/17 12:59 Urine Mucus Moderate /HPF (NEGATIVE) 04/03/17 12:59 Ur Culture Indicated? No/not indicated 04/03/17 12:59 - XRAY XRAY Interpreted by: Radiologist XRAY Findings: REPORT DISCUSS WITH PATIENT. - Diagnosis Discharge Problem: Hydrocele in adult, Bilateral varicoceles, Testicular cyst, Testicular/scrotal pain - Discharge Plan Disposition: 01 HOME, SELF-CARE Condition: Stable Prescriptions: Acetaminophen with Codeine [Tylenol/Codeine #3 300-30 mg] 1 tab PO Q8H PRN #15 tab PRN Reason: Pain Ibuprofen [MOTRIN TAB 600 MG *] 600 mg PO TID PRN #20 tab PRN Reason: Pain/Inflammation - Follow ups/Referrals Follow ups/Referrals: Lyndon FRANCE [Primary Care Provider] - 3 days - Instructions Instructions: Scrotal Swelling, Varicocele Additional Instructions: RETURN TO ED IF WORSE. FOLLOW UP WITH UROLOGIST THIS WEEK.
[2017-04-03 12:33] LABS: BASOPHILS # (AUTO) 0.1 X10^3/uL (0.0-0.1); BASOPHILS % (AUTO) 1.1 % (0.2-1.0); EOSINOPHILS # (AUTO) 0.5 x10^3/uL (0.0-0.2); EOSINOPHILS % (AUTO) 10.1 % (0.9-2.9); HEMATOCRIT 41.2 % (42.0-54.0); HEMOGLOBIN 14.2 g/dL (13.5-18.0); LYMPHOCYTES % (AUTO) 39.3 % (21.0-51.0); MEAN CORPUSCULAR HEMOGLOBIN 28.7 pg (27.0-34.0); MEAN CORPUSCULAR HGB CONC 34.5 g/dL (33.0-35.0); MEAN PLATELET VOLUME 9.1 fL (7.4-11.0); MONOCYTES # (AUTO) 0.3 x10^3/uL (0.3-0.8); MONOCYTES % (AUTO) 5.8 % (0.0-13.0); NEUTROPHILS # (AUTO) 2.2 x10^3/uL (2.2-4.8); NEUTROPHILS % (AUTO) 43.7 % (42.0-75.0); PLATELET COUNT 181 X10^3/uL (150.0-450.0); RED BLOOD COUNT 4.96 X10^6/uL (4.7-6.0); RED CELL DISTRIBUTION WIDTH 13.9 % (11.6-16.5)
[2017-04-03 12:44] LABS: ALANINE AMINOTRANSFERASE 16 Units/L (12-78); ALBUMIN 3.6 g/dL (3.4-5.0); ALKALINE PHOSPHATASE 118 Units/L (46-116); ASPARTATE AMINO TRANSFERASE 15 Units/L (15-37); BLOOD UREA NITROGEN 17 mg/dL (7-18); CALCIUM 9.5 mg/dL (8.5-10.1); CARBON DIOXIDE 27.9 mmol/L (21-32); CHLORIDE 101 mmol/L (98-107); CREATININE 1.22 mg/dL (0.70-1.30); SODIUM 134 mmol/L (136-145); TOTAL PROTEIN 7.6 g/dL (6.4-8.2); eGFR BLACK RACES > 60 (>60); eGFR NON BLACK RACES > 60 (>60)
--- NOTE | 2017-04-03 13:11 | US ---
HISTORY: Testicular pain for 1 year, right greater than left Study: Scrotal ultrasound: Multiplanar ultrasonographic examination of the scrotum and its contents was performed. Comparison: None Findings: On the images submitted me the testicles overall are mildly heterogeneous. Vascular flow was document ed and symmetric bilaterally. Right testicle: 4.0 cm in length by 2.1 x 3.2 cm. There is an epididymal head cyst present measuring 14 mm in length by 8.3 x 8.6 mm. A small hydrocele is noted. There is suspicion for a small varicocel e. Left testicle: 3.4 cm in length by 2.2 x 2.9 cm. There is a paratesticular cyst measuring 1.3 x 1.8 m m in maximum dimension. There is a high degree of suspicion for a moderate-sized type varicocele. Min imal fluid is noted around the testicle. IMPRESSION: 1. Intrinsically the testicles are mildly heterogeneous and show symmetric vascular flow. 2. There is a epididymal head cyst on the right and a tiny paratesticular cyst on the left. 3. There is suspicion for bilateral varicoceles, left larger than right. 3. Small right hydrocele and tiny left hydrocele. Reported By:
[2017-04-03 13:53] LABS: BILIRUBIN,URINE NEGATIVE (NEGATIVE); BLOOD/HEMOGLOBIN,URINE NEGATIVE (NEGATIVE); GLUCOSE, URINE NEGATIVE (NEGATIVE); KETONES,URINE NEGATIVE (NEGATIVE); LEUKOCYTE ESTERASE ,URINE NEGATIVE (NEGATIVE); NITRITES,URINE NEGATIVE (NEGATIVE); PROTEIN,URINE 1+ (NEGATIVE); UROBILINOGEN,URINE 1+ (NORMAL)
[2017-04-03 13:59] LABS: COLOR,URINE DARK YELLOW (YELLOW)
[2017-04-03 14:00] LABS: APPEARANCE,URINE CLEAR (CLEAR); BACTERIA,URINE 1+ /HPF (NEGATIVE); MUCUS,URINE MODERATE /HPF (NEGATIVE); RBC,URINE NONE SEEN /HPF (NEGATIVE); SQUAMOUS EPITHELIAL CELL,UR RARE /HPF (NEGATIVE)
== END 2017-04-03 13:50 | disposition home or self-care (01) ==
LOC: ER 11:08
DX: N43.3 Hydrocele, unspecified (principal); I86.1 Scrotal varices; N44.2 Benign cyst of testis; N50.811 Right testicular pain; N50.82 Scrotal pain
CPT/HCPCS: 36415; 76870; 80053; 81001; 85025; 99283

== ENCOUNTER 2017-10-14 14:22 | Emergency (ER) | payer MEDICAID ==
[2017-10-14 14:30] VITALS: BP 129/88; BMI 26.4
--- NOTE | 2017-10-14 15:06 | DR.HEADACH ---
HPI - Time Seen Time seen: 14:40 - Primary Care Physician Primary Care Physician: EDILMA GOMEZ DR, SINGH - Complaint/Symptoms Chief Complaint Doctors Comments: Patient presents to the ED because his speech therapist reports that his speech has gotten worse. This was her second visit, and the only speech therapy that he had received since CVA one year ago. Prior to the CVA, he was diagnosed with prostate cancer and underwent radiation therapy. Patient is coherent, speech is clear but deliberate and understandable. His speech therapy was delayed due to financial considerations. Chief Complaint:: PT C/O LAST WEEK HAVING A SPEECH APPT AND THAT HE WAS TOLD BY HIS THEARPIST THAT HIS SPEECH WAS GETTING WORSE AND SO THAT IS WHY HE IS HERE TODAY ,,, PT HAS HX OF CVA, PAS WAS NOT ABLE TO FLU WITH MD UNTIL TODAY ,,BR Self Treatment fo Chief Complaint: PT STATES " THIS HAS BEEN GOING ON FOR WHILE " PT DOES HAVE SOME SPEECH ISSUES BUT PT IS ABLE TO ARTICULATE HIS WORDS WELL. PT IS ABLE TO MOVE ALL EXTS,BUT HE DOES NOTE SOME RIGHT SIDE WEAKNESS AND DROOPING OF THE MOUTH THAT IS NOT NEW PER PT PT C/O BAIRES OFF AND ON..BR - Source History Provided: Patient - Mode of Arrival Mode of Arrival: Ambulatory - Timing Onset of Chief Complaint: 10/04/17 - Location Headache Location: Frontal - Severity Headache Severity: Moderate PMH - PMH Past Medical History: Yes Past Medical History: CVA, Hypertension, Liver Disease Past Medical History Comment: RADIATION FOR PROSTATE CANCER . Past Surgical History: Yes Surgical History: Ortho Surgery - Family History History of Family Medical Conditions: Yes Family Medical History: Diabetes Mellitus, Cancer, Hypertension - Social History Does patient currently use any type of tobacco product: No Have you used tobacco products in the last 12 months: No Type of Tobacco Use: None Does any household member use tobacco: No Alcohol Use: None Do you use any recreational Drugs:: No Lives With: Family Lives Where: Home - infectious screening In the last 2 months have you had wt loss of >10#?: NO Have you had fever, night sweats or hemotysis?: No Have you traveled outside the country in the last 6 months?: No Isolation: Standard ROS - Review of Systems Eyes: No Symptoms Reported ENTM: No Symptoms Reported Respiratoy: No Symptoms Reported Cardiovascular: No Symptoms Reported Gastrointestinal/Abdominal: No Symptoms Reported Genitourinary: No Symptoms Reported Neurological: Weakness, Problems Walking, Speech Problem Musculoskeletal: See HPI Integumentary: No Symptoms Reported Hematologic/Lymphatic: No Symptoms Reported Endocrine: No Symptoms Reported Psychiatric: No Symptoms Reported All Other Systems: Reviewed and Negative PE - Vital Signs Vitals: Temperature 97.3 F Pulse Rate 71 Respiratory Rate 20 Blood Pressure [Right Arm] 131/80 Blood Pressure [Left Arm] 151/80 Blood Pressure [Standing] 189/113 Blood Pressure [Sitting] 174/110 Blood Pressure [Lying] 187/116 Blood Pressure 129/88 O2 Sat by Pulse Oximetry 98 - General General Appearance: Alert, In No Apparent Distress - Head Head Exam: Normal Inspection, Atraumatic - Eyes Eye exam: Normal Appearance, PERRL, EOMI Eyelids: Normal Inspection: Bilateral Pupils: Regular, Round: Bilateral, Reactive: Bilateral Sclera/Conjunctival: Normal Inspection: Bilateral - ENT ENT Exam: Normal Exam External Ear Exam: Normal External Inspection TM/Canal Exam: Bilateral Normal Nose Exam: Normal Nose Exam Mouth Exam: Normal Inspection Teeth Exam: Normal Inspection Throat Exam: Normal Inspection - Neck Neck Exam: Normal Inspection - Chest Chest Inspection: Normal Inspection - Respiratory Respiratory Exam: Normal Lung Sounds Bilat Respiratory Exam: Bilateral Clear to Auscultation - Cardiovascular Cardiovascular Exam: Regular Rate, Normal Rhythm - Abdominal Exam Abdominal Exam: Normal Inspection Abdominal Tenderness: negative: RUQ, RLQ, LUQ, LLQ, Epigastrium, Suprapubic, Diffuse, Mild, Moderate, Severe, Other - Extremities Extremities Exam: Normal Inspection - Back Back Exam: Normal Inspection - Neurologic Neurological Exam: Alert, Oriented X3, CN II-XII Intact - Psychiatric Psychiatric Exam: Normal Affect - Skin Skin Exam: Warm, Dry ROR - XRAY XRAY Interpreted by: Radiologist (CT Brain w/o: Imaging of the brain demonstrates no intracranial hemorrhage, mass effect, or midline shift. No extra-axial fluid collection is identified. There is no CT evidence to suggest acute or early subacute infarct. Global atrophy is noted. There are low attenuating foci within the periventricular white matter, findiings suggesting chronic small vessel disease. There is focal encephalomalacie within the left alcala radiata with ex vacuo dilatation of the adjacent left lateral ventricle, findings consistend with prior remote infarct. Prior remote infarct appears to involve the posterior limb of the left internal capsule as well. The basiclar cisterns are patent. The bony structures are intact. Impression: No acute intracranial process evident. Prior remote infarct and chronic small vessle disease.) - Diagnosis Discharge Problem: No acute infarct, No acute intracranial process - Discharge Plan Condition: Stable - Follow ups/Referrals Follow ups/Referrals: Lyndon FRANCE [Primary Care Provider] - 3 days - Instructions
--- NOTE | 2017-10-14 15:28 | CT ---
HISTORY: CVA, worsening speech Study: CT brain without contrast Comparison: 11/19/2016 Technique: Multiple axial images of the brain were obtained from the skull base to the vertex without administra tion of IV contrast. Findings: Imaging of the brain demonstrates no intracranial hemorrhage, mass effect, or midline shift. No extra -axial fluid collection is identified. There is no CT evidence to suggest acute or early subacute inf arct. Global atrophy is noted. There are low attenuating foci within the periventricular white matter , findings suggesting chronic small vessel disease. There is focal encephalomalacia within the left c mer radiata with ex vacuo dilatation of the adjacent left lateral ventricle, findings consistent wi th prior remote infarct. Prior remote infarct appears to involve the posterior limb of the left inter nal capsule as well. The basilar cisterns are patent. The bony structures are intact. IMPRESSION: 1. No acute intracranial process evident. 2. Prior remote infarct and chronic small vessel disease. Reported By:
== END 2017-10-14 16:16 | disposition home or self-care (01) ==
LOC: ER 14:34
DX: R47.89 Other speech disturbances (principal); Z86.73 Personal history of transient ischemic attack (TIA), and cerebral infarction without residual deficits; R29.810 Facial weakness; M62.81 Muscle weakness (generalized); R51 Headache; I10 Essential (primary) hypertension; K76.9 Liver disease, unspecified
CPT/HCPCS: 70450; 99282